=== PATIENT | male | born 1950 | race Caucasian/White ===

== ENCOUNTER 2016-08-03 09:53 | Inpatient (IN) | payer BC ==
[2016-07-09 13:56] VITALS: BMI 33.0
--- NOTE | 2016-07-09 14:32 | PAT Medication Instructions ---
Service Date Jul 09, 2016. Current Home Medication List Calcium (Caltrate), 600 MG PO HS Cholecalciferol (D-5000), 1 TAB PO HS Escitalopram (Lexapro), 10 MG PO HS Finasteride (Proscar), 5 MG PO HS Gabapentin (Neurontin), 100 MG PO HS Hydrocodone/Acetaminophen 5MG/325MG ([place] 5MG/325MG), 1 TABLET PO Q6 PRN for Pain Irbesartan-Hydrochlorothiazide (Avalide), 1 TAB PO HS Meloxicam (Mobic), 15 MG PO HS Pantoprazole (Pantoprazole Sodium), 1 TAB PO HS Psyllium (Metamucil Powder), 1 PACK PO DAILY Simvastatin (Zocor), 20 MG PO QPM Tamsulosin Hcl (Flomax *), 0.4 MG PO HS [Pottasium], 595 MG PO HS Medication Instructions For Your Scheduled Surgery Meloxicam (Mobic), 15 MG PO HS (per surgeon instructions) - Hold the following medications evening prior to surgery: Irbesartan-Hydrochlorothiazide (Avalide), 1 TAB PO HS - Hold the following medications the morning of surgery: Psyllium (Metamucil Powder), 1 PACK PO DAILY - Take the following medications the morning of surgery with a sip of water: Hydrocodone/Acetaminophen 5MG/325MG ([place] 5MG/325MG), 1 TABLET PO Q6 PRN for Pain (can take up to four hours prior to surgery if needed) - Take the following medications as scheduled the night before surgery: Potassium 595 MG PO HS Simvastatin (Zocor), 20 MG PO QPM Tamsulosin Hcl (Flomax *), 0.4 MG PO HS Pantoprazole (Pantoprazole Sodium), 1 TAB PO HS Calcium (Caltrate), 600 MG PO HS Cholecalciferol (D-5000), 1 TAB PO HS Escitalopram (Lexapro), 10 MG PO HS Finasteride (Proscar), 5 MG PO HS Gabapentin (Neurontin), 100 MG PO HS Hydrocodone/Acetaminophen 5MG/325MG ([place] 5MG/325MG), 1 TABLET PO Q6 PRN for Pain If you have any questions please call us at [phone] or [phone] ( Graciela) or [phone]
[2016-07-09 15:19] LABS: BASO % 0.1 %; BASO ABS # 0.01 K/uL (0-0.2); COMPLETE YES; EOS % 1.9 %; IG% 0.3 %; MEAN CELL VOLUME 88.6 fL (80-100); MEAN CORPUSCULAR HEMOGLOBIN 31.4 pg (25-34); MEAN CORPUSCULAR HGB CONC 35.5 g/dl (32-36); MEAN PLATELET VOLUME 9.3 fL (7.4-10.4); MONO % 6.7 %; PLATELET COUNT 219 K/uL (130-400); RED BLOOD COUNT 4.74 M/uL (4.7-6.1); WHITE BLOOD COUNT 8.63 K/uL (4.8-10.8)
--- NOTE | 2016-07-09 15:21 | DIAGNOSTIC IMAGING REPORT ---
TWO VIEW CHEST CLINICAL HISTORY: Preoperative examination. FINDINGS: PA and lateral chest radiographs are compared to study dated 10/10/2013. The heart is top normal for projection. Chronic interstitial thickening with elevation of the right hemidiaphragm is similar to previous. No airspace consolidation or pleural effusion is seen. There is a questionable 1.4 cm nodular density in the left upper lobe. There is no pneumothorax. The skeletal structures appear osteopenic. Degenerative change is noted throughout the thoracic spine. Cholecystectomy clips are identified in the right upper quadrant. IMPRESSION: 1. No active disease in the chest. 2. There is a questionable 1.4 cm nodular density in the left upper lobe. Although this could represent superimposition of shadows, a follow-up chest CT is recommended to exclude underlying pulmonary lesion. Electronically signed by: Lele Dominguez M.D. 07/09/2016 3:20 PM Dictated Date/Time: 07/09/2016 3:17 PM
[2016-07-09 15:23] LABS: URINE APPEARANCE CLEAR (CLEAR); URINE BILIRUBIN NEG (NEG); URINE COLOR YELLOW; URINE NITRITE NEG (NEG); URINE PH 7.5 (4.5-7.5); URINE SPECIFIC GRAVITY 1.011 (1.000-1.030); UROBILINOGEN NEG (NEG); ZZUR CULT IF INDIC CLEAN CATCH NO
[2016-07-09 15:36] LABS: MANUAL MICROSCOPIC REQUIRED? NO; REVIEW REQ? NO
[2016-07-09 15:41] LABS: PROTHROMBIN TIME (PATIENT) 10.7 SECONDS (9.0-12.0)
[2016-07-09 15:52] LABS: BUN/CREATININE RATIO 15.2 (10-20); CALCIUM 9.3 mg/dl (8.5-10.1); CREATININE 1.1 mg/dl (0.60-1.40); POTASSIUM 3.9 mmol/L (3.5-5.1)
--- NOTE | 2016-07-31 14:31 | HISTORY & PHYSICAL EXAMINATION ---
DATE OF ADMISSION: 08/03/2016 CHIEF COMPLAINT: Right hip pain. HISTORY OF PRESENT ILLNESS: The patient rates his pain a 9/10. He has pain with his daily activities. He has limited standing and walking tolerance. Pain is worse with weightbearing. The patient has had injections, anti-inflammatories and narcotics without relief. The patient has failed conservative treatment and is scheduled for right hip replacement. PAST MEDICAL HISTORY: Hypertension, acid reflux. He denies heart disease, diabetes or DVT. PAST SURGICAL HISTORY: Lumbar fusion, left BHR and left toe ORIF. SOCIAL HISTORY: The patient denies alcohol or tobacco use. He lives in a single amarilys home with his and he works as a endo tech. FAMILY HISTORY: Negative for DVT. MEDICATIONS: Hydrocodone 5/325, escitalopram 10 mg, Meloxicam 15 mg, pantoprazole 40 mg, finasteride 5 mg, simvastatin 20 mg, irbesartan 150/12.5 and gabapentin 100 mg. ALLERGIES: IV DYE. REVIEW OF SYSTEMS: See HPI. Ten other systems reviewed, all negative. PHYSICAL EXAMINATION: VITAL SIGNS: Height 5 foot 10 inches. Weight 232 pounds. BMI is 33. GENERAL: This is a well-developed, well-nourished male who is alert and oriented x3. Mood and affect are appropriate. HEENT: Normocephalic, atraumatic. Mucous membranes are moist and intact. NECK: Supple without lymphadenopathy. HEART: Regular rate and rhythm without murmurs, rubs or gallops. LUNGS: Clear to auscultation without wheezes or rhonchi. ABDOMEN: Soft and nontender. Bowel sounds are equal and active. EXTREMITIES: No ecchymosis, redness or warmth. Thigh and calf are soft and nontender. Log roll of the right hip reproduces pain in the groin. Range of motion is decreased. He is neurovascularly intact with +5/5 strength. He walks with an antalgic gait. X-RAY EXAMINATION: AP and lateral views show joint space narrowing and osteophyte formation. IMPRESSION: Degenerative joint disease, right hip. PLAN: The patient will be admitted for a right total hip arthroplasty, direct anterior. We will plan on aspirin for DVT prophylaxis. PCP is Dr. Barnes in [place]. He will have [facility] for home physical therapy.
[2016-08-03] VITALS (8 sets, daily range): BP systolic 99–147; BP diastolic 63–77; PULSE 65–71; TEMP 36.3–36.7; O2SAT 94–98; Ht 177.8 cm; Wt 103.9 kg
[~2016-08-03] VITALS: Ht 177.8 cm; Wt 103.9 kg
[~2016-08-03 09:53] MED LIST: ACETAMINOPHEN 500 MG TAB PO SCH; ATROPINE SULFATE 0.1 MG/ML 5ML SYR IV PRN; BUPIVACAINE 0.5 % 5 MG/1 ML PF 10ML VIAL ONE; CALCTAB5 PO; CEFAZOLIN 2000 MG/60 ML D5W 60 ML IV SCH; CHOLTAB11 PO; CeleBREX 200 MG CAP PO SCH; DEXAMETHASONE 4 MG TAB PO SCH; ESCI10TA17 PO; EpHEDrine SULFATE INJ 50 MG/ML AMP IV PRN; FAMOTIDINE 20 MG TAB PO SCH; FENTANYL CITRATE INJ 50 MCG/1 ML 2 ML VIAL IV PRN; FINA5TAB PO; FLM4 PO; GABA-112 PO; GABAPENTIN 300 MG CAP PO SCH; HYDR-5688 PO; IRBE-43 PO; LACTATED RINGER'S 1000ML 1,000 ML IV SCH; LACTATED RINGER'S 1000ML 500 ML IV ONE; LACTATED RINGER'S 1000ML IV SCH; MELO7.5T5 PO; METOCLOPRAMIDE HCL 10 MG TAB PO SCH; ONDANSETRON INJ 2 MG/ML 2 ML VIAL IV PRN; OXYCODONE HCL 10 MG TABCR (OXYCONTIN) PO SCH; POTTASIUM PO; PRT/40 PO; PSYL55.43 PO; ROPIVACAINE 5MG/ML 30 ML 150 MG, BUPIVACAINE/EPINEPHR 0.5% MPF 30 ML, KETOROLAC TROMETH... INFIL SCH; SIMV20TA2 PO
[2016-08-03] MEDS ORDERED: LIDOCAINE HCL 2% 2 ML VIAL (20MG/ML) ONE (11:52)
[2016-08-03] MEDS ORDERED: PROPOFOL IV EMULSION 10 MG/ML 20 ML VIAL IV ONE (11:52)
[2016-08-03] MEDS ORDERED: MIDAZOLAM HCL 1 MG/ML 2ML VIAL ONE ×2 (11:52→13:50)
--- NOTE | 2016-08-03 12:31 | History & Physical Bridge Note ---
H&P Re-Evaluation Bridge Note: I have examined the patient, reviewed the History & Physical and in the interval since the performance of the History & Physical I have noted the following changes of clinical significance: No changes noted
[2016-08-03] MEDS ORDERED: ORTHO JOINT ANESTHETIC ONE (13:11)
[2016-08-03] MEDS ORDERED: POVIDONE-IODINE OP SOLN 30 ML BTL ONE (13:11)
[2016-08-03] MEDS ORDERED: BACITRACIN 50000 UNIT VIAL ONE (13:12)
[2016-08-03] MEDS: TRANEXAMIC ACID INJ 1,000 MG in SODIUM CHLORIDE 0.9% 100ML 100 ML IV SCH ×2 (13:43→17:15)
[2016-08-03] MEDS ORDERED: ONDANSETRON INJ 2 MG/ML 2 ML VIAL ONE (14:05)
[2016-08-03] MEDS ORDERED: RANITIDINE HCL 25 MG/ML INJ ONE (14:05)
[2016-08-03] MEDS: POLYMYXIN B SULFATE 100,000 UNITS in NSS 100ML IR SCH ×2 (14:30→15:29)
[2016-08-03] MEDS: VANCOMYCIN INJ 400 MG in NSS 100ML IR SCH ×2 (14:30→15:29)
[2016-08-03] MEDS ORDERED: FENTANYL CITRATE INJ 50 MCG/1 ML 2 ML VIAL ONE (14:56)
--- NOTE | 2016-08-03 15:19 | [facility] Post Operative Brief Note ---
Immediate Operative Summary Operative Date Aug 03, 2016. Pre-Operative Diagnosis Degenerative joint disease, right hip Post-Operative Diagnosis Degenerative joint disease, right hip Procedure(s) Performed Right total hip arthroplasty, direct anterior approach--Uncemented Surgeon Dr. Vinh Ken Ground Operations Supervisor Surgeon(s) Larissa Mercedes Estimated Blood Loss 150 ml Findings DJD Specimens A: right femoral head Complication(s) None Disposition Recovery Room / PACU
[2016-08-03] MEDS ORDERED: BISACODYL 10 MG SUPP PR PRN (15:30)
[2016-08-03] MEDS ORDERED: MoRPHine SULFATE 4 MG/ML 1 ML CARP\\VIAL IV PRN (15:30)
[2016-08-03] MEDS ORDERED: MAGNESIUM HYDROXIDE SUSP 30 ML UDC PO PRN (15:30)
[2016-08-03] MEDS ORDERED: SOD PHOSPHATE/SOD BIPHOSPHATE ENEMA 132 ML BTL PR PRN (15:30)
[2016-08-03] MEDS ORDERED: DiphenhydrAMINE HCL 50 MG/ML VIAL IV PRN (15:30)
[2016-08-03] MEDS ORDERED: METOCLOPRAMIDE HCL INJ 5 MG/ML 2 ML VIAL IV PRN (15:30)
[2016-08-03] MEDS ORDERED: OXYCODONE HCL IR 5 MG TAB (IMMEDIATE RELEASE) PO PRN (15:30)
[2016-08-03] MEDS ORDERED: ALUMINUM/MAGNESIUM/SIMETH (MAALOX MAX) 30 ML UDC PO PRN (15:30)
[2016-08-03] MEDS ORDERED: ONDANSETRON INJ 2 MG/ML 2 ML VIAL IV PRN (15:30)
[2016-08-03] MEDS ORDERED: TRAMADOL HCL 50 MG TAB PO PRN (15:30)
[2016-08-03] MEDS ORDERED: ZOLPIDEM TARTRATE 5 MG TAB PO PRN (15:30)
--- NOTE | 2016-08-03 15:30 | DIAGNOSTIC IMAGING REPORT ---
RIGHT HIP UNILATERAL 1 VIEW CLINICAL HISTORY: RT HIP ARTHROPLASTY Right COMPARISON STUDY: None. FINDINGS: Total fluoroscopy time was 12 seconds. A single fluoroscopic spot image was submitted. There is a right total hip arthroplasty. The hardware appears intact. No fracture or dislocation within the right hip. IMPRESSION: Fluoroscopy provided for right total hip arthroplasty. Electronically signed by: Morgan Sun M.D. 08/03/2016 3:28 PM Dictated Date/Time: 08/03/2016 3:27 PM
--- NOTE | 2016-08-03 16:25 | Anesthesiology Progress Note ---
Anesthesia Post Op Note Date & Time Aug 03, 2016 at 16:25 Vital Signs Pain Intensity: 0 Vital Signs Past 12 Hours Date Time Temp Pulse Resp B/P Pulse Ox O2 Delivery O2 Flow Rate FiO2 08/03/16 15:45 36.3 87 14 113/66 98 Nasal Cannula 2 08/03/16 10:16 36.5 68 16 147/71 96 Room Air Notes Mental Status: alert / awake / arousable, participated in evaluation Pt Amnestic to Procedure: Yes Nausea / Vomiting: adequately controlled Pain: adequately controlled Airway Patency, RR, SpO2: stable & adequate BP & HR: stable & adequate Hydration State: stable & adequate Neuraxial Anesthesia: was administered, sensory block is resolving Anesthetic Complications: no major complications apparent
--- NOTE | 2016-08-03 16:26 | DIAGNOSTIC IMAGING REPORT ---
AP PELVIS, CROSSTABLE LATERAL RIGHT HIP History: Right total hip arthroplasty. Degenerative arthritis. Postop. FINDINGS: The patient is status post a right total hip arthroplasty. The hardware is intact. No fracture or dislocation. Surgical drains are in place. Evidence for prior left hip resurfacing. IMPRESSION: Right total hip arthroplasty. No evidence for hardware complication Electronically signed by: Morgan Sun M.D. 08/03/2016 4:25 PM Dictated Date/Time: 08/03/2016 4:24 PM
[2016-08-03] MEDS: D5W AND 1/2NSS + 20MEQ KCL 1,000 ML IV SCH (19:37)
[2016-08-03] MEDS: KETOROLAC TROMETHAMINE 30 MG/ML VIAL IV. SCH (20:10)
[2016-08-03] MEDS ORDERED: POTTASIUM PO SCH (21:00)
[2016-08-03] MEDS ORDERED: TRANEXAMIC ACID INJ 1,000 MG in SODIUM CHLORIDE 0.9% 100ML 100 ML IV SCH (21:30)
[2016-08-03] MEDS: CEFAZOLIN IV 2,000 MG in DEXTROSE 5% 50ML 50 ML IV SCH (21:44)
[2016-08-03] MEDS: ACETAMINOPHEN 500 MG TAB PO SCH (21:52)
[2016-08-03] MEDS: FINASTERIDE 5 MG TAB PO SCH (21:55)
[2016-08-03] MEDS: TAMSULOSIN HCL 0.4 MG CAP PO SCH (21:55)
[2016-08-03] MEDS: SENNA 8.6 MG TAB PO SCH (21:55)
[2016-08-03] MEDS: GABAPENTIN 100 MG CAP PO SCH (21:55)
[2016-08-03] MEDS: ASPIRIN 81 MG ECTAB PO SCH (21:55)
[2016-08-03] MEDS: SIMVASTATIN 20 MG TAB PO SCH (21:55)
[2016-08-03] MEDS: IRBESARTAN 150 MG TAB PO SCH (21:56)
[2016-08-03] MEDS: CALCIUM 600MG + VIT D 400 IU TAB PO SCH (21:56)
[2016-08-03] MEDS: ESCITALOPRAM OXALATE 10 MG TAB PO SCH (21:56)
[2016-08-03] MEDS: HYDROCHLOROTHIAZIDE 25 MG TAB PO SCH (21:57)
--- NOTE | 2016-08-03 23:56 | OPERATIVE REPORT ---
DATE OF OPERATION: 08/03/2016 PREOPERATIVE DIAGNOSIS: Degenerative arthritis, right hip. POSTOPERATIVE DIAGNOSIS: Same. PROCEDURE: Right total hip replacement. SURGEON: Vinh Ken MD. POTTERY KILN BUILDER: GURJIT Pham. ANESTHESIA: Spinal. BLOOD LOSS: 150 mL REPLACEMENT FLUIDS: 1500 mL crystalloid. DRAINS: Hemovac x1. CULTURES: None. COMPLICATIONS: None. COMPONENTS USED: Bocanegra \T\ Nephew Anthology hip system: Acetabulum size 54, femur size 9 high offset, femoral head 0, neck length 36 mm. NOTE: GURJIT Pham, was present and assisted throughout due to the complicated nature of this case. She helped with preparation and setup. She first assisted throughout and personally closed the fascial, subcutaneous and skin layers, and applied the postop dressing. DESCRIPTION: Following satisfactory spinal, the patient was supine. The patient was placed on the table, the right leg in the traction device, the left leg in a well leg garcia. The leg was prepared with ChloraPrep and draped sterilely. Following a surgical timeout, an anterior approach in the interval between the sartorius and tensor muscles was completed, circumflex femoral vessels were identified and ligated, and an anterior capsulotomy was performed. The arthritic femoral neck and head were trimmed and removed. Under fluoroscopic guidance, reaming was completed and a 54 shell was impacted into an anatomic position and secured with a dome screw. Local anesthetic was placed, and following irrigation, the poly liner was placed. The femur was placed into position of external rotation, extension and adduction. Femoral canal was sounded and prepared up to a size 9. A 9 high offset showed best fit and fill with reduction and fluoroscopy showed judaism of leg lengths using anatomic landmarks. Hip was dislocated. The trial component was removed. Final implant was placed. The hip was irrigated and reduced. Hemovac drain was placed. Betadine soak was performed. After 5 minutes, Betadine was irrigated. Capsule was closed with #1 Vicryl interrupted. The fascia was closed with a running suture of #1 Vicryl. Subcutaneous tissues were closed with 2-0 Vicryl. Running subcuticular stitch of 3-0 Vicryl was placed in the skin. A dry dressing was applied. The patient was returned to his bed in stable condition. I attest to the content of the Intraoperative Record and any orders documented therein. Any exceptio ns are noted below.
[2016-08-04] MEDS: KETOROLAC TROMETHAMINE 30 MG/ML VIAL IV. SCH ×4 (01:40→20:51)
[2016-08-04 02:50] VITALS: BP 120/72; PULSE 68; TEMP 36.5; O2SAT 96
[2016-08-04] MEDS: D5W AND 1/2NSS + 20MEQ KCL 1,000 ML IV SCH ×2 (04:28→13:20)
[2016-08-04 05:54] LABS: COMPLETE YES; IG% 0.3 %; LYMPH % 9.9 %; LYMPH ABS # 1.13 K/uL (1.2-3.4); MEAN CELL VOLUME 88.1 fL (80-100); MEAN CORPUSCULAR HEMOGLOBIN 30.6 pg (25-34); MEAN CORPUSCULAR HGB CONC 34.7 g/dl (32-36); MEAN PLATELET VOLUME 9.5 fL (7.4-10.4); MONO % 5.6 %; NEUT % 84.2 %; PLATELET COUNT 188 K/uL (130-400); RED BLOOD COUNT 3.86 M/uL (4.7-6.1); WHITE BLOOD COUNT 11.46 K/uL (4.8-10.8)
[2016-08-04] MEDS: ACETAMINOPHEN 500 MG TAB PO SCH ×3 (05:57→20:56)
[2016-08-04] MEDS: CEFAZOLIN IV 2,000 MG in DEXTROSE 5% 50ML 50 ML IV SCH (05:57)
[2016-08-04 06:27] LABS: BUN/CREATININE RATIO 15.5 (10-20); CALCIUM 8.1 mg/dl (8.5-10.1); CREATININE 1.1 mg/dl (0.60-1.40); POTASSIUM 4.2 mmol/L (3.5-5.1)
[2016-08-04 07:32] VITALS: BP 121/75; PULSE 69; TEMP 36.6; O2SAT 94
--- NOTE | 2016-08-04 07:50 | Orthopedic Progress Note ---
Orthopedic Progress Note Date of Service Aug 04, 2016. Subjective Post OP Day: 1 Reports: feeling well, Denies: SOB, calf pain, chest pain, light headedness, nausea / vomiting Objective calves soft nontender, N/V intact, hip located, dressing C/D/I, A&O x3, toes mobile, hemovac drainage (170/100CC PER SHIFT) Date Time Temp Pulse Resp B/P Pulse Ox O2 Delivery O2 Flow Rate FiO2 08/04/16 07:32 36.6 69 16 121/75 94 Room Air 08/04/16 02:50 36.5 68 18 120/72 96 Room Air 08/03/16 23:15 Room Air 08/03/16 22:55 36.4 65 16 99/63 94 Room Air 08/03/16 21:58 125/77 08/03/16 20:30 Room Air 08/03/16 19:47 36.4 65 18 109/71 94 Room Air 08/03/16 18:54 36.3 65 17 111/71 96 Nasal Cannula 2.0 08/03/16 17:43 36.7 71 17 111/73 96 Nasal Cannula 2.0 08/03/16 17:15 36.4 69 17 122/74 98 Nasal Cannula 2.0 08/03/16 16:45 97 Nasal Cannula 2.0 08/03/16 16:45 97 Nasal Cannula 2.0 08/03/16 16:45 36.5 71 18 110/68 97 Nasal Cannula 2.0 08/03/16 16:31 69 12 95 08/03/16 16:31 69 12 08/03/16 16:28 109/61 08/03/16 16:26 66 12 97 08/03/16 16:26 66 12 08/03/16 16:25 36.4 67 13 94/64 98 Nasal Cannula 2 08/03/16 16:23 94/64 08/03/16 16:21 76 16 97 08/03/16 16:21 74 16 08/03/16 16:18 109/60 08/03/16 16:16 74 18 08/03/16 16:16 72 18 104/66 08/03/16 16:13 90/67 08/03/16 16:11 78 16 08/03/16 16:11 80 16 98 08/03/16 16:08 110/73 08/03/16 16:06 82 18 96 08/03/16 16:06 81 18 08/03/16 16:03 101/67 08/03/16 16:01 72 12 97 08/03/16 16:01 72 12 08/03/16 15:58 103/66 08/03/16 15:56 86 21 08/03/16 15:56 85 21 98 08/03/16 15:53 117/69 08/03/16 15:51 77 12 97 08/03/16 15:51 79 12 08/03/16 15:48 115/65 08/03/16 15:46 90 15 08/03/16 15:46 91 15 98 08/03/16 15:45 36.3 87 14 113/66 98 Nasal Cannula 2 08/03/16 15:43 113/68 113/68 08/03/16 15:41 86 15 08/03/16 15:41 86 15 98 08/03/16 10:16 36.5 68 16 147/71 96 Room Air Laboratory Results 24 Hours: Test 08/04/16 05:25 White Blood Count 11.46 K/uL Red Blood Count 3.86 M/uL Hemoglobin 11.8 g/dL Hematocrit 34.0 % Mean Corpuscular Volume 88.1 fL Mean Corpuscular Hemoglobin 30.6 pg Mean Corpuscular Hemoglobin Concent 34.7 g/dl Platelet Count 188 K/uL Mean Platelet Volume 9.5 fL Neutrophils (%) (Auto) 84.2 % Lymphocytes (%) (Auto) 9.9 % Monocytes (%) (Auto) 5.6 % Eosinophils (%) (Auto) 0.0 % Basophils (%) (Auto) 0.0 % Neutrophils # (Auto) 9.65 K/uL Lymphocytes # (Auto) 1.13 K/uL Monocytes # (Auto) 0.64 K/uL Eosinophils # (Auto) 0.00 K/uL Basophils # (Auto) 0.00 K/uL Assessment & Plan Assessment: POD#1 SP RIGHT ARELI, DIRECT ANTERIOR Inhouse Planning Pain Management: Celebrex, PO Tylenol, Oxy IR DVT Prophylaxis: TEDs, SCDs, ASA Discharge Planning Discharge Planning: home with home health ([facility]
--- NOTE | 2016-08-04 07:51 | Discharge Instructions ---
Discharge Instructions Admission Reason for Admission: Right Hip Degenerative Arthritis Discharge Discharge Diagnosis / Problem: SP RIGHT ARELI, DIRECT ANTERIOR Discharge Goals Goal(s): Decrease discomfort, Improve function, Increase independence Activity Recommendations Activity Limitations: per Instructions/Follow-up section . Instructions / Follow-Up Instructions / Follow-Up ACTIVITY RECOMMENDATIONS: SELF CARE INSTRUCTIONS AFTER TOTAL HIP REPLACEMENT : Direct Anterior Approach Until the incision and soft tissues around your hip have healed, there is a possibility that the hip prosthesis could dislocate. A. Hip flexion ( Up & Down out of chair or steps ) may be difficult. This is normal. B. Numbness in front of the thigh is also normal for a few weeks. C. Use hand rails when walking on stairs. D. Wear low heeled shoes with non-slip soles. E. Be sure that your floors are free of things that could trip you - throw rugs , electrical cords, small objects. Avoid wet and waxed floors, especially with crutches and canes. F. Try to walk several times a day with rest periods between. G. Continue with all the exercises taught to you in the hospital. Again, make walking a part of your daily routine. SPECIAL CARE INSTRUCTIONS: VERY IMPORTANT TO READ AND REVIEW A. You may still be at risk for phlebitis and blood clots. 1. Wear surgical stockings (ELOINA hose) for 2 weeks after surgery to improve circulation and reduce swelling. 2. Take Aspirin 81mg twice daily for 4 weeks or as directed by your doctor. This is your blood thinner. 3. High risk patients may be prescribed a stronger blood thinner if necessary. 4. If you are on Coumadin normally, your family doctor/director of pharmacy should monitor your blood work. Expect a phone call the day of or the day after bloodwork is drawn to adjust your dosage. B. You must take antibiotics before having dental work, bladder, bowel and other surgery. Your doctor will provide you with a permanent card to carry describing precautions. C. Call [facility] if you have a fever, redness or swelling around the incision, cloudy drainage from incision, or sudden increase in pain in your hip, not relieved by your regular pain medication. D. Please call the office at if you have any concerns or questions about your operation or recovery. * YOU MAY SHOWER, NO TUB BATHS UNTIL CLEARED BY YOUR DOCTOR. - Keep an extra close eye on the top portion of your incision. Be sure to keep clean & dry. * WEAR ELOINA HOSE 20 HOURS PER DAY FOR 2 WEEKS. * YOU MAY PROGRESS FROM A WALKER, TO A CANE, TO INDEPENDENT AT YOUR OWN PACE. * MOST PATIENTS WILL HAVE HOME NURSING FOR THERAPY. IF YOU DECIDE TO DO OUTPATIENT PHYSICAL THERAPY, PLEASE SCHEDULE THIS 3 TIMES PER WEEK. NEW AQUACEL DRESSING. KEEP SURGICAL DRESSING INTACT X 1 WEEK THEN REMOVE. SEE BELOW FOR FURTHER INSTRUCTIONS. * DERMABOND Prineo- This is a mesh tape dressing that is covered with glue. It should remain in place until the incision is properly healed, usually 10-14 days. This dressing is designed to naturally slough off. You may trim the excess mesh tape as it peels off. Incision may be briefly wet in a shower. Dry immediately by blotting with a clean, dry towel. Do not bath or swim until instructed by your doctor. Do not scratch, rub, or pick at the dressing. Do not apply any topical ointments or lotions until dressing is completely removed and/or instructed by your doctor. There may be a small piece of suture material at one end of your incision. Do not pull or trim this. If it is bothersome or catching on clothing, you may cover it with a band-aid. FOLLOW UP VISIT: If appointment is not already scheduled: Please call [facility] to make a follow-up appointment for 2 weeks after your surgery at . Current Hospital Diet Patient's current hospital diet: Regular Diet Discharge Diet Recommended Diet: Regular Diet Procedures Procedures Performed: Right total hip arthroplasty, direct anterior approach--Uncemented Pending Studies Studies pending at discharge: no Medical Emergencies . Who to Call and When: Medical Emergencies: If at any time you feel your situation is an emergency, please call 911 immediately. . Non-Emergent Contact Non-Emergency issues call your: Primary Care Provider . "Provider Documentation" section prepared by Larissa Mercedes. VTE Core Measure Inpt VTE Proph given/why not?: Other Anticoagulation, T.E.D. Stockings, SCD's
[2016-08-04] MEDS: PANTOprazole SOD 40 MG TAB PO SCH (08:46)
[2016-08-04] MEDS: ASPIRIN 81 MG ECTAB PO SCH ×2 (08:46→20:53)
[2016-08-04] MEDS: MULTIVITAMIN TAB PO SCH (08:47)
[2016-08-04] MEDS: PSYLLIUM 58.6% PWD PACK S\\F PO SCH (08:47)
[2016-08-04 10:38] VITALS: BP 114/61; PULSE 74; TEMP 36.5; O2SAT 94
[2016-08-04 15:10] VITALS: BP 144/76; PULSE 72; TEMP 36.4; O2SAT 99
[2016-08-04] MEDS: HYDROCHLOROTHIAZIDE 25 MG TAB PO SCH (20:52)
[2016-08-04] MEDS: IRBESARTAN 150 MG TAB PO SCH (20:52)
[2016-08-04] MEDS: TAMSULOSIN HCL 0.4 MG CAP PO SCH (20:53)
[2016-08-04] MEDS: CALCIUM 600MG + VIT D 400 IU TAB PO SCH (20:54)
[2016-08-04] MEDS: GABAPENTIN 100 MG CAP PO SCH (20:54)
[2016-08-04] MEDS: ESCITALOPRAM OXALATE 10 MG TAB PO SCH (20:54)
[2016-08-04] MEDS: SENNA 8.6 MG TAB PO SCH (20:55)
[2016-08-04] MEDS: FINASTERIDE 5 MG TAB PO SCH (20:55)
[2016-08-04] MEDS: SIMVASTATIN 20 MG TAB PO SCH (20:55)
[2016-08-04 23:17] VITALS: BP 109/70; PULSE 73; TEMP 36.7; O2SAT 98
[2016-08-05] MEDS: KETOROLAC TROMETHAMINE 30 MG/ML VIAL IV. SCH ×2 (01:36→08:29)
[2016-08-05 06:11] VITALS: BP 116/68; PULSE 75; TEMP 36.7; O2SAT 97
[2016-08-05] MEDS: ACETAMINOPHEN 500 MG TAB PO SCH (06:12)
[2016-08-05] MEDS ORDERED: ACET-1138 PO (07:44)
[2016-08-05] MEDS ORDERED: ASPEC81 PO (07:44)
[2016-08-05] MEDS ORDERED: SNK PO (07:44)
[2016-08-05] MEDS ORDERED: CLB200 PO (07:44)
[2016-08-05] MEDS ORDERED: ONDA8TAB6 PO (07:44)
[2016-08-05] MEDS ORDERED: RXC5 PO (07:44)
[2016-08-05 07:53] VITALS: BP 128/76; PULSE 69; TEMP 36.8; O2SAT 93
[2016-08-05] MEDS: PSYLLIUM 58.6% PWD PACK S\\F PO SCH (08:27)
[2016-08-05] MEDS: MULTIVITAMIN TAB PO SCH (08:30)
[2016-08-05] MEDS: ASPIRIN 81 MG ECTAB PO SCH (08:30)
[2016-08-05] MEDS: PANTOprazole SOD 40 MG TAB PO SCH (08:30)
[2016-08-05 08:55] VITALS: O2SAT 93
--- NOTE | 2016-08-05 09:20 | DISCHARGE SUMMARY ---
DISCHARGE DIAGNOSIS: Degenerative joint disease, right hip. SECONDARY DIAGNOSIS: None. CONSULTS: None. COMPLICATIONS: None. PROCEDURE: The patient underwent a direct anterior right total hip arthroplasty with Dr. Ken on 08/03/2016. BRIEF HISTORY: Please see previously dictated history and physical. HOSPITAL SUMMARY: The patient was admitted on the above day for the above procedure. Procedure went without complication. Postop day 1, the patient was feeling well without complaints. He denied chest pain or shortness of breath. Vital signs were stable. He was afebrile. Dressing was clean, dry and intact. He was neurovascularly intact. Calves were soft and nontender. Hip was located. Hemovac drained 170 and 100 mL per shift. Hemoglobin was 11.8. The patient began physical therapy per protocol and postop day 2 the patient was improving. He denied chest pain or shortness of breath. Vital signs were stable. He was afebrile. Dressing was clean, dry and intact. He was neurovascularly intact. Calves were soft and nontender. Hemovac has been removed. The patient continued to progress with therapy and was discharged to home later that day in stable condition. For further review please see the chart. Lab, x-ray data and discharge instructions as per chart.
[2016-08-05 10:37] VITALS: BP 128/76; PULSE 69; TEMP 36.8; O2SAT 93
[2016-08-06] MEDS ORDERED: CeleBREX 200 MG CAP PO SCH (09:00)
== END 2016-08-05 11:45 | disposition home health service (06) | DRG 470 ==
LOC: ENRESERVTM → ENRESERVDT → C.ACU 09:53 → C.3E 11:00
PROVIDERS: ADMIT Orthopaedic Surgery; ATTEND Orthopaedic Surgery
PROC: 0SR904A Replacement of Right Hip Joint with Ceramic on Polyethylene Synthetic Substitute, Uncemented, Open Approach (ICD-10-PCS; principal; 2016-08-03 12:30)
DX: M16.11 Unilateral primary osteoarthritis, right hip (principal); I10 Essential (primary) hypertension; K21.9 Gastro-esophageal reflux disease without esophagitis; E78.5 Hyperlipidemia, unspecified; F41.9 Anxiety disorder, unspecified; F32.9 Major depressive disorder, single episode, unspecified; N40.0 Benign prostatic hyperplasia without lower urinary tract symptoms; E66.9 Obesity, unspecified; Z68.33 Body mass index [BMI] 33.0-33.9, adult; Z87.891 Personal history of nicotine dependence; Z98.1 Arthrodesis status; Z79.1 Long term (current) use of non-steroidal anti-inflammatories (NSAID); Z79.891 Long term (current) use of opiate analgesic; Z79.899 Other long term (current) drug therapy

== ENCOUNTER 2017-05-19 07:05 | Inpatient (IN) | payer BC, OTHER ==
--- NOTE | 2017-04-29 13:55 | PAT Medication Instructions ---
Service Date Apr 29, 2017. Current Home Medication List Acetaminophen (Tylenol Extra Strength), 1,000 MG PO Q8 Calcium (Calcium), 1 TAB PO QAM Cholecalciferol (D-1000), 1 TAB PO HS Escitalopram (Lexapro), 10 MG PO HS Finasteride (Proscar), 5 MG PO HS Irbesartan-Hydrochlorothiazide (Avalide), 1 TAB PO QPM Meloxicam (Mobic), 15 MG PO QAM Oxycodone HCl (Oxycodone HCl), 5-10 MG PO Q4H PRN for Pain Pantoprazole (Pantoprazole Sodium), 1 TAB PO HS Psyllium (Metamucil), 1 DOSE PO DAILY PRN for Constipation Simvastatin (Zocor), 20 MG PO QPM [potassium], 595 MG PO QAM Medication Instructions For Your Scheduled Surgery - Check with surgeon for instructions: Meloxicam (Mobic), 15 MG PO QAM - Hold the following medications 24 hours prior to surgery: Irbesartan-Hydrochlorothiazide (Avalide), 1 TAB PO QPM - Hold the following medications the morning of surgery: Calcium (Calcium), 1 TAB PO QAM [potassium], 595 MG PO QAM Psyllium (Metamucil), 1 DOSE PO DAILY PRN for Constipation - Take the following medications the morning of surgery with a sip of water: Acetaminophen (Tylenol Extra Strength), 1,000 MG PO Q8 (okay to take up to 4 hours prior to surgery if needed) Oxycodone HCl (Oxycodone HCl), 5-10 MG PO Q4H PRN for Pain (okay to take up to 4 hours prior to surgery if needed) - Take the following medications as scheduled the night before surgery: Cholecalciferol (D-1000), 1 TAB PO HS Escitalopram (Lexapro), 10 MG PO HS Finasteride (Proscar), 5 MG PO HS Simvastatin (Zocor), 20 MG PO QPM Pantoprazole (Pantoprazole Sodium), 1 TAB PO HS Psyllium (Metamucil), 1 DOSE PO DAILY PRN for Constipation (if needed) If you have any questions please call us at [phone] or [phone] or [phone]
[2017-04-29 14:58] LABS: BASO % 0.3 %; BASO ABS # 0.02 K/uL (0-0.2); COMPLETE YES; EOS % 2.7 %; HEMATOCRIT 40.2 % (42-52); IG% 0.2 %; LYMPH % 39.8 %; LYMPH ABS # 2.62 K/uL (1.2-3.4); MEAN CELL VOLUME 89.7 fL (80-100); MEAN CORPUSCULAR HEMOGLOBIN 30.8 pg (25-34); MEAN CORPUSCULAR HGB CONC 34.3 g/dl (32-36); MEAN PLATELET VOLUME 9.3 fL (7.4-10.4); MONO % 7.6 %; NEUT % 49.4 %; PLATELET COUNT 212 K/uL (130-400); RED BLOOD COUNT 4.48 M/uL (4.7-6.1); WHITE BLOOD COUNT 6.59 K/uL (4.8-10.8)
[2017-04-29 14:59] LABS: URINE APPEARANCE CLEAR (CLEAR); URINE BILIRUBIN NEG (NEG); URINE COLOR YELLOW; URINE NITRITE NEG (NEG); URINE PH 6.5 (4.5-7.5); URINE SPECIFIC GRAVITY 1.016 (1.000-1.030); UROBILINOGEN NEG (NEG); ZZUR CULT IF INDIC CLEAN CATCH NO
[2017-04-29 15:01] LABS: MANUAL MICROSCOPIC REQUIRED? NO; REVIEW REQ? NO
[2017-04-29 15:04] LABS: BUN/CREATININE RATIO 18.9 (10-20); CALCIUM 9.3 mg/dl (8.5-10.1); CREATININE 1.12 mg/dl (0.60-1.40); POTASSIUM 4.4 mmol/L (3.5-5.1)
[2017-05-19] VITALS (9 sets, daily range): BP systolic 102–152; BP diastolic 66–80; PULSE 60–89; TEMP 36.4–36.9; O2SAT 94–100; Ht 177.8 cm; Wt 91.7 kg
[~2017-05-19] VITALS: Ht 177.8 cm; Wt 91.7 kg
[~2017-05-19 07:05] MED LIST changes: +ACET-1138 PO; -ACETAMINOPHEN 500 MG TAB PO SCH; -ATROPINE SULFATE 0.1 MG/ML 5ML SYR IV PRN; -BUPIVACAINE 0.5 % 5 MG/1 ML PF 10ML VIAL ONE; +CALC600T37 PO; -CALCTAB5 PO; -CEFAZOLIN 2000 MG/60 ML D5W 60 ML IV SCH; +CEFAZOLIN 2000MG IV PUSH 10 ML IV SCH; -CHOLTAB11 PO; +CHOLTAB5 PO; -CeleBREX 200 MG CAP PO SCH; -DEXAMETHASONE 4 MG TAB PO SCH; -EpHEDrine SULFATE INJ 50 MG/ML AMP IV PRN; -FAMOTIDINE 20 MG TAB PO SCH; -FENTANYL CITRATE INJ 50 MCG/1 ML 2 ML VIAL IV PRN; -FLM4 PO; -GABA-112 PO; -GABAPENTIN 300 MG CAP PO SCH; -HYDR-5688 PO; +IRBE-41 PO; -IRBE-43 PO; -LACTATED RINGER'S 1000ML 500 ML IV ONE; -LACTATED RINGER'S 1000ML IV SCH; -METOCLOPRAMIDE HCL 10 MG TAB PO SCH; -ONDANSETRON INJ 2 MG/ML 2 ML VIAL IV PRN; -OXYCODONE HCL 10 MG TABCR (OXYCONTIN) PO SCH; +PANT40TA2 PO; -POTTASIUM PO; -PRT/40 PO; +PSYL0.524 PO; -PSYL55.43 PO; -ROPIVACAINE 5MG/ML 30 ML 150 MG, BUPIVACAINE/EPINEPHR 0.5% MPF 30 ML, KETOROLAC TROMETH... INFIL SCH; +RXC5 PO; +potassium PO
[2017-05-19] MEDS ORDERED: ATROPINE SULFATE 0.1 MG/ML 5ML SYR IV PRN (07:45)
[2017-05-19] MEDS ORDERED: EpHEDrine SULFATE INJ 50 MG/ML AMP IV PRN (07:45)
[2017-05-19] MEDS ORDERED: FENTANYL CITRATE INJ 50 MCG/1 ML 2 ML VIAL IV PRN (07:45)
[2017-05-19] MEDS ORDERED: ONDANSETRON INJ 2 MG/ML 2 ML VIAL IV PRN ×2 (07:45→11:30)
[2017-05-19] MEDS ORDERED: HYDROmorphone INJ 1 MG/ML SYR IV PRN (07:45)
[2017-05-19] MEDS ORDERED: FENTANYL CITRATE INJ 50 MCG/1 ML 2 ML VIAL ONE ×3 (08:18→10:36)
[2017-05-19] MEDS ORDERED: MIDAZOLAM HCL 1 MG/ML 2ML VIAL ONE (08:18)
--- NOTE | 2017-05-19 08:36 | History and Physical ---
History & Physical Date May 19, 2017. Chief Complaint Back and leg pain History of Present Illness The patient is a 66 year old male with complaints of back and leg pain Past Medical/Surgical History Surgical Problems: (1) Post-operative state Additional History Hepatic Disease: No Endocrine Disorder: No Kidney Disease: No Hypertension: Yes Heart Disease: No Bleeding Tendencies: No Infectious Diseases: No Allergies Coded Allergies: Iodinated Diagnostic Agents (Verified Allergy, Intermediate, HIVES, ) Home Medications Scheduled Acetaminophen (Tylenol Extra Strength), 1,000 MG PO Q8 Calcium (Calcium), 1 TAB PO QAM Cholecalciferol (D-1000), 1 TAB PO HS Escitalopram (Lexapro), 10 MG PO HS Finasteride (Proscar), 5 MG PO HS Irbesartan-Hydrochlorothiazide (Avalide), 1 TAB PO QPM Meloxicam (Mobic), 15 MG PO QAM Pantoprazole (Pantoprazole Sodium), 1 TAB PO HS Simvastatin (Zocor), 20 MG PO QPM [potassium], 595 MG PO QAM Scheduled PRN Oxycodone HCl (Oxycodone HCl), 5-10 MG PO Q4H PRN for Pain Psyllium (Metamucil), 1 DOSE PO DAILY PRN for Constipation Physical Examination Skin: warm/dry, no rash Eyes: normal inspection, EOMI, sclerae normal ENT: normal ENT inspection, pharynx normal Head: normocephalic, atraumatic Neck: supple, no adenopathy, trachea midline Respiratory/Chest: lungs clear, normal breath sounds, no respiratory distress Cardiovascular: regular rate, rhythm, no edema, no murmur Abdomen / GI: normal bowel sounds, non tender Back: normal inspection Extremities: normal inspection, normal range of motion Neurologic/Psych: no motor/sensory deficits, alert, normal reflexes, oriented x 3 Diagnosis Lumbar spinal stenosis Plan of Treatment Removal of hardware L4 5 decompression fusion L2 to L4
[2017-05-19] MEDS ORDERED: BACITRACIN 50000 UNIT VIAL ONE (08:54)
[2017-05-19] MEDS ORDERED: BUPIVACAINE/EPINEPHRINE 0.5% MPF 1:200,000 30 ML VIAL ONE (08:54)
[2017-05-19] MEDS ORDERED: HYDROmorphone INJ 2 MG/ML SYR/VIAL ONE ×2 (09:33→11:25)
[2017-05-19] MEDS ORDERED: ONDANSETRON INJ 2 MG/ML 2 ML VIAL ONE ×2 (10:26→11:29)
[2017-05-19] MEDS ORDERED: DEXAMETHASONE SOD INJ 4 MG/ML VIAL ONE (10:26)
[2017-05-19] MEDS ORDERED: LIDOCAINE HCL 2% 2 ML VIAL (20MG/ML) ONE (10:26)
[2017-05-19] MEDS ORDERED: PROPOFOL IV EMULSION 10 MG/ML 20 ML VIAL IV ONE (10:26)
[2017-05-19] MEDS ORDERED: FLOSEAL HEMOSTATIC MATRIX 5ML TOP ONE (11:12)
[2017-05-19] MEDS ORDERED: SODIUM CHLORIDE 0.9% 1000ML 1,000 ML IV SCH (11:17)
[2017-05-19] MEDS ORDERED: GLYCOPYRROLATE INJ 0.2 MG/ML VIAL ONE (11:29)
[2017-05-19] MEDS ORDERED: NEOSTIGMINE METHYLSULFATE 1 MG/ML 10ML VIAL ONE (11:29)
[2017-05-19] MEDS ORDERED: DO NOT ADMINISTER PNEUMOCOCCAL VACCINE PRN ×2 (11:30)
[2017-05-19] MEDS ORDERED: BISACODYL 10 MG SUPP PR PRN (11:30)
[2017-05-19] MEDS ORDERED: PROMETHAZINE HCL INJ 12.5 MG in SODIUM CHLORIDE 0.9% 50ML 50 ML IV PRN (11:30)
[2017-05-19] MEDS ORDERED: ALUMINUM/MAGNESIUM SUSP 30 ML UDC PO PRN (11:30)
[2017-05-19] MEDS ORDERED: SOD PHOSPHATE/SOD BIPHOSPHATE ENEMA 132 ML BTL PR PRN (11:30)
[2017-05-19] MEDS ORDERED: HYDROmorphone HCL 0.5MG/ML 50 ML CASSETTE IV PRN (11:30)
[2017-05-19] MEDS ORDERED: MAGNESIUM HYDROXIDE SUSP 30 ML UDC PO PRN (11:30)
[2017-05-19] MEDS ORDERED: hydrOXYzine HCL 25 MG TAB PO PRN (11:30)
[2017-05-19] MEDS ORDERED: DO NOT ADMINISTER FLU VACCINE PRN ×3 (11:30)
[2017-05-19] MEDS ORDERED: FAMOTIDINE 20 MG TAB PO PRN (11:30)
[2017-05-19] MEDS ORDERED: ACETAMINOPHEN IV 100 ML IV PRN (11:30)
[2017-05-19] MEDS ORDERED: NALOXONE HCL 0.4 MG/1 ML VIAL/CARP IV PRN ×2 (11:30)
[2017-05-19] MEDS ORDERED: LORAZEPAM INJ 0.5 MG in SYRINGE 0 ML IV PRN (11:30)
[2017-05-19] MEDS ORDERED: LORAZEPAM 0.5 MG TAB PO PRN (11:30)
[2017-05-19] MEDS ORDERED: METOCLOPRAMIDE HCL INJ 5 MG/ML 2 ML VIAL IV PRN (11:30)
[2017-05-19] MEDS ORDERED: ACETAMINOPHEN 500 MG TAB PO PRN (11:30)
--- NOTE | 2017-05-19 11:35 | DIAGNOSTIC IMAGING REPORT ---
LUMBAR SPINE 2 OR 3 VIEW CLINICAL HISTORY: 66 years-old Male presenting with L4-5 REMOVE HARDWARE L2-4 DECOMPRESSION/FUSION/INTERBODY. TECHNIQUE: 3 fluoroscopic spot image(s) obtained as part of an intraoperative procedure. COMPARISON: MR lumbar spine from 03/22/2017. FINDINGS/IMPRESSION: There has been interval extension of posterior lumbar fusion now spanning L2-L4 with removal of the L5 posterior bilateral transpedicular screw and lalit fixation. Interbody spacers noted from L2-3 through L4-5. Laminectomy defects at these levels also noted. Grossly normal anatomic alignment. Please see surgical report for further details. Fluoroscopy dosage (mGy): 7.07. Fluoroscopy time: 8.6 seconds. Number of fluoroscopic spot images: 3. Electronically signed by: César Telles M.D. 05/19/2017 11:34 AM Dictated Date/Time: 05/19/2017 11:32 AM
--- NOTE | 2017-05-19 11:42 | [facility] Operative Report ---
Operative Report Operative Date May 19, 2017. Pre-Operative Diagnosis Lumbar Spinal Stenosis Post-Operative Diagnosis Lumbar Spinal Stenosis Procedure(s) Performed #1 removal of posterior instrumentation L4 5. #2 exploration of fusion L4 5. #3 revision decompression medial facetectomies foraminotomies L2 3 and L3 4. #4 posterior spinal fusion L2 3 L3 4. #5 posterior segmental transportation L2 3 L3 4. #6 interbody fusion L2 3 L3 4. #7 placement peek cage 12 x 26 mm L 2 3 L3 4. #8 placement of locally harvested morcellized autograft in the posterior lateral gutters. #9 placement infuse collagen sponge combined with Master graft in the posterior lateral gutters and ostial amp in the interbody spaces. Surgeon Dr. Ching Band Singer Surgeon(s) GURJIT Arredondo Estimated Blood Loss 250mL Findings Severe spinal stenosis with herniated was pulposus Specimens A) Removed Hardware Description of Procedure Patient was met with preoperatively case discussed all questions addressed. After informed consent was obtained patient was taken back to the operative suite underwent intubation placed in a prone position the Jose table top Lior frame. All bony prominences were well-padded eyes inspected to ensure there is no external pressure placed upon them. This point the lumbar spines prepped and draped nostril fashion. Sharp dissection with the assistance of Bovie cautery was performed onto an exposing the lamina and transverse processes of L2-L3 and instrumentation at the L4 5 bilaterally. Then proceeded remove the hardware at L4 5 bilaterally. Explored the fusion mass noting it to be intact. Then performed a complete revision laminectomy of L3 and L2 addressing severe lateral recess and foraminal disease. Including a massive disc herniation at L2-3 level. Pedicle screws then placed in L2 L3 L4 bilaterally with assistance of fluoroscopy and the probably size lalit placed. Through a transforaminal approach on the right a complete discectomy of L34 was performed and plate created to subcortical bleeding bone and a 12 x 26 mm peek cage filled with ostial amp graft tapped in position. Then proceeded to 3 and again through a transverse foraminal approach on the right a complete discectomy performed end plate curetted to subcortical bleeding bone and again a 12 x 26 mm peek cage filled with ostial amp bone graft tapped in position. The rods were then compressed locked into final position bilaterally. The transverse processes of L2 L3 L4 burred to subcortical bleeding bone. Infuse collagen sponge mask graft locally harvested morcellized autograft was placed in the posterior gutters. 15 round TOM drain was inserted. Incision was then closed with 1 Vicryl fascia 2-0 Vicryl subcutaneous C 4 Monocryl for final skin closure Steri-Strip sterile dressing was placed patient we can take PACU stable condition. Please note Nette Grant was present at the entire procedure involved in patient positioning complex portions of the surgery and final skin closure. I attest to the content of the Intraoperative Record and any orders documented therein. Any exceptions are noted below.
[2017-05-19] MEDS ORDERED: EpHEDrine SULFATE 50MG/5ML SYR ONE (11:46)
[2017-05-19] MEDS ORDERED: KETOROLAC TROMETHAMINE 30 MG/ML VIAL ONE (11:46)
[2017-05-19] MEDS ORDERED: ESMOLOL HCL 10 MG/ML 10 ML VIAL ONE (11:46)
[2017-05-19] MEDS ORDERED: ROCURONIUM BROMIDE 10 MG/ML 5 ML VIAL IV ONE (11:47)
[2017-05-19] MEDS ORDERED: HYDROmorphone HCL 0.5MG/ML 50 ML CASSETTE ONE (11:47)
--- NOTE | 2017-05-19 12:16 | Anesthesiology Progress Note ---
Anesthesia Post Op Note Date & Time May 19, 2017 at 12:16 Vital Signs Pain Intensity: 2 Vital Signs Past 12 Hours Date Time Temp Pulse Resp B/P (MAP) Pulse Ox O2 Delivery O2 Flow Rate FiO2 05/19/17 12:10 36.6 76 16 123/69 99 Nasal Cannula 4 05/19/17 12:00 79 16 130/65 100 Oxymask 10 05/19/17 11:50 81 16 140/70 100 Oxymask 10 05/19/17 11:41 36.9 85 16 127/68 100 Oxymask 10 05/19/17 08:21 36.9 60 20 152/80 96 Room Air Notes Mental Status: alert / awake / arousable, participated in evaluation Pt Amnestic to Procedure: Yes Nausea / Vomiting: adequately controlled Pain: adequately controlled Airway Patency, RR, SpO2: stable & adequate BP & HR: stable & adequate Hydration State: stable & adequate Anesthetic Complications: no major complications apparent
[2017-05-19] MEDS: LACTATED RINGER'S 1000ML 1,000 ML IV SCH ×2 (15:56→21:12)
[2017-05-19] MEDS ORDERED: NURSING VERBAL MED ORDER ONE (19:30)
[2017-05-19] MEDS: DOCUSATE SODIUM/SENNA 50/8.6MG TAB PO SCH (21:12)
[2017-05-19] MEDS: ESCITALOPRAM OXALATE 10 MG TAB PO SCH (21:12)
[2017-05-19] MEDS: PANTOprazole SOD 40 MG TAB PO SCH (21:12)
[2017-05-19] MEDS: DEXAMETHASONE INJ 6 MG in SYRINGE 0 ML IV SCH (21:12)
[2017-05-19] MEDS: SIMVASTATIN 20 MG TAB PO SCH (21:12)
[2017-05-19] MEDS: FINASTERIDE 5 MG TAB PO SCH (21:13)
[2017-05-19] MEDS: IRBESARTAN 150 MG TAB PO SCH (21:13)
[2017-05-19] MEDS: HYDROCHLOROTHIAZIDE 25 MG TAB PO SCH (21:13)
[2017-05-19] MEDS: CEFAZOLIN IV 2,000 MG in SYRINGE 0 ML IV SCH (21:21)
[2017-05-20] VITALS (7 sets, daily range): BP systolic 108–136; BP diastolic 62–71; PULSE 67–80; TEMP 36.5–37.1; O2SAT 95–98
[2017-05-20] MEDS: DEXAMETHASONE INJ 6 MG in SYRINGE 0 ML IV SCH ×2 (03:30→11:22)
[2017-05-20] MEDS: LACTATED RINGER'S 1000ML 1,000 ML IV SCH (03:30)
[2017-05-20] MEDS: CEFAZOLIN IV 2,000 MG in SYRINGE 0 ML IV SCH (03:30)
[2017-05-20] MEDS ORDERED: DC PCA ONE (06:00)
[2017-05-20] MEDS ORDERED: NURSING VERBAL MED ORDER ONE (06:00)
[2017-05-20] MEDS ORDERED: HYDROmorphone INJ 0.5 MG/0.5 ML SYR IV PRN (06:01)
[2017-05-20 07:39] LABS: COMPLETE YES; HEMATOCRIT 33.7 % (42-52); IG% 0.3 %; LYMPH % 7.3 %; LYMPH ABS # 0.77 K/uL (1.2-3.4); MEAN CELL VOLUME 89.6 fL (80-100); MEAN CORPUSCULAR HEMOGLOBIN 31.1 pg (25-34); MEAN CORPUSCULAR HGB CONC 34.7 g/dl (32-36); MEAN PLATELET VOLUME 9.3 fL (7.4-10.4); MONO % 5.9 %; NEUT % 86.5 %; PLATELET COUNT 200 K/uL (130-400); RED BLOOD COUNT 3.76 M/uL (4.7-6.1); WHITE BLOOD COUNT 10.53 K/uL (4.8-10.8)
[2017-05-20] MEDS ORDERED: RXC5 PO (07:44)
--- NOTE | 2017-05-20 07:45 | Discharge Instructions ---
Discharge Instructions Date of Service May 20, 2017. Admission Reason for Admission: Lumbar Spinal Stenosis Discharge Discharge Diagnosis / Problem: lumbar spinal stenosis Discharge Goals Goal(s): Improve function Activity Recommendations Activity Limitations: per Instructions/Follow-up section . Instructions / Follow-Up Instructions / Follow-Up ACTIVITY RECOMMENDATIONS: SELF CARE INSTRUCTIONS AFTER THORACIC/LUMBAR FUSIONS 1. You may walk to your tolerance. It is good exercise for your legs and back. Expect some back and intermittent leg aches and pains. 2. You may perform "counter-top" level activities (make a sandwich, hattie with a project, etc.). 3. No bending or lifting of more than 10 pounds or back twisting of any nature (roll like a log when turning in bed). 4. You may ride in a car for 20-30 minutes at a time. No driving until after your first visit with your doctor. 5. Frequent changes of position and restricting sitting to 30 minutes at a time will help limit the amount of back spasms and stiffness you may experience. 6. You may discontinue the use of ambulatory aids (cane, crutches, etc.) once your strength and confidence allow. 7. You may filer finish the shower and let water strike your incision when you arrive home at least once daily. Do not take a tub bath, sit in a hot tub or go into a swimming pool until after your first recheck in the office. SPECIAL CARE INSTRUCTIONS: VERY IMPORTANT TO READ AND REVIEW A. Your surgical incision has been closed with a cosmetic suture under the skin that will dissolve in about 6 weeks. In 14 days, you can use a pair of clean scissors and cut the suture that is left outside of the skin at the ends of your incision. 1. The small skin tapes can be removed 7 days after surgery if they have not fallen off by that point. 2. You may keep the wound open to air as much as possible to promote healing after post-op day number 5 unless told otherwise by your doctor. 3. If you think the wound looks like it is becoming infected (redness or worsening drainage) and/or you are experiencing fever, chill or worsening back pain and muscle spasms, contact the office so that we may evaluate you as soon as possible. B. Complications are uncommon, but please contact us if you have any signs or symptoms of: 1. wound infection (fever higher than 102.5 degrees F, redness, separation of wound, drainage, or increasing pain from the incision) 2. blood clots in legs (pain, swelling, redness and warmth in legs) 3. urinary tract infection (fever higher than 102.5 degrees F, burning upon urination or increased frequency of urination) 4. nerve problems (inability to walk on your toes or heels, numbness, loss of bowel or bladder control) 5. any other symptoms that concern you C. Please call the office at if you have any concerns or questions about your operation or recovery. D. No smoking! Smoking drastically decreases the chance of a solid fusion. E. Do not take any anti-inflammatory medications (Indocin, Advil, Motrin, Aspirin, Naprosyn, etc.) as these may inhibit the chance of a solid fusion. Tylenol is okay to take for pain. MANAGING PAIN AFTER SPINAL SURGERY 1. Narcotic medication is intended for short-term use and will be provided for surgical pain. Surgical pain usually lasts for a period of 4-6 weeks. Narcotic medication includes Percocet, Vicodin, Darvocet, Tylenol #3 or Lortab. 2. Longer-term pain is more appropriately treated with non-narcotic medication such as Tylenol ES. 3. Muscle spasm is not appropriately treated with narcotics. Muscle relaxers such as Soma, Flexeril or Skelaxin can be used along with Tylenol ES. 4. Remember that we all live with some "aches and pains". This is not unusual or uncommon after an injury or as we get older. a. Back pain is expected and may include muscle spasms for 4 to 6 weeks after surgery. The pain should gradually improve. If the pain worsens for no apparent reason, please contact the office. b. Intermittent leg pain may also be experienced and should not be concerned about unless it worsens for no apparent reason. If so, please contact the office. 5. We will provide appropriate medication within the normal guidelines of their prescribed use. We will also be very cautious and aware of potential abuse and extended duration of patients' medication needs. a. Pain medications are for your comfort and to assist with sleep and rest so that the tissue can heal. They are not provided in order to return to normal activity and should not be used through the day. To do so or worsening pain at night can result from ongoing tissue damage and development of tolerance to the prescribed medicine. 6. Please allow 2-3 days to process refills. Prescriptions will not be mailed but must be picked up at the office. FOLLOW UP VISIT: Keep your scheduled follow-up appointment. Any questions, please call the office at . Current Hospital Diet Patient's current hospital diet: Regular Diet Discharge Diet Recommended Diet: Regular Diet Procedures Procedures Performed: #1 removal of posterior instrumentation L4 5. #2 exploration of fusion L4 5. #3 revision decompression medial facetectomies foraminotomies L2 3 and L3 4. #4 posterior spinal fusion L2 3 L3 4. #5 posterior segmental transportation L2 3 L3 4. #6 interbody fusion L2 3 L3 4. #7 placement peek cage 12 x 26 mm L 2 3 L3 4. #8 placement of locally harvested morcellized autograft in the posterior lateral gutters. #9 placement infuse collagen sponge combined with Master graft in the posterior lateral gutters and ostial amp in the interbody spaces. Pending Studies Studies pending at discharge: no Medical Emergencies . Who to Call and When: Medical Emergencies: If at any time you feel your situation is an emergency, please call 911 immediately. . Non-Emergent Contact Non-Emergency issues call your: Primary Care Provider . "Provider Documentation" section prepared by Romulo Ching. . VTE Core Measure Inpt VTE Proph given/why not?: Mayelin Hsu, AJ's
--- NOTE | 2017-05-20 07:50 | Clinical Documentation Query ---
SY Tierney : CLINICAL DOCUMENTATION QUERY Patient is a 66 year old male admitted for removal of prior lumbar instrumentation, decompression and posterior lumbar interbody fusion. Preoperative H&H was 13.8 g/dl and 40.2%. POD #1, repeat values were 11.7 g/dl and 33.7%. This is in the setting of a negative balance I/O of greater than 1,200 ml's and a cumulative blood loss thus far of 730 ml's. He is being monitored with serial hematology and I/O including drain outputs. In your clinical opinion is this patient being managed for: ( ) Acute blood loss anemia ( ) Not Agree ( ) Other explanation of clinical findings (Please Explain) ( ) Unable to determine (Please Define) ( ) Need to Discuss The medical record reflects the following clinical findings, treatment, and risk factors. Clinical Indicators: Negative I/O balance, 730 ml's blood loss Treatment: Serial hematology, I/O Risk Factors: Surgery Please clarify and document your clinical opinion in the progress notes and discharge summary. Terms such as "probable", "suspected", "likely", "questionable", "possible", or "still to be ruled out" are acceptable. IF IN AGREEMENT, YOU MUST DOCUMENT ABOVE DIAGNOSTIC STATEMENT IN DAILY PROGRESS NOTES AND DISCHARGE SUMMARY. This document is not part of the patient's record. Thank You, Edgar Ellnigton RN [phone]
[2017-05-20 08:12] LABS: BUN/CREATININE RATIO 15.6 (10-20); CALCIUM 8.7 mg/dl (8.5-10.1); CREATININE 1.1 mg/dl (0.60-1.40); POTASSIUM 3.9 mmol/L (3.5-5.1)
--- NOTE | 2017-05-20 09:34 | Anesthesiology Progress Note ---
Anesthesia Post Op Note Date & Time May 20, 2017 at 09:34 Vital Signs Pain Intensity: 3.0 Vital Signs Past 12 Hours Date Time Temp Pulse Resp B/P (MAP) Pulse Ox O2 Delivery O2 Flow Rate FiO2 05/20/17 08:03 Room Air 05/20/17 07:22 37.1 75 18 136/69 (91) 96 Room Air 05/20/17 03:30 36.7 80 16 108/62 (77) 97 Room Air 05/19/17 23:15 Room Air 05/19/17 22:51 36.5 82 18 137/79 (98) 94 Room Air Notes Mental Status: alert / awake / arousable, participated in evaluation Pt Amnestic to Procedure: Yes Nausea / Vomiting: adequately controlled Pain: adequately controlled Airway Patency, RR, SpO2: stable & adequate BP & HR: stable & adequate Hydration State: stable & adequate Anesthetic Complications: no major complications apparent
--- NOTE | 2017-05-20 09:55 | Anesthesiology Progress Note ---
Anesthesia Post Op Note Date & Time May 20, 2017 at 09:55 Vital Signs Pain Intensity: 3.0 Vital Signs Past 12 Hours Date Time Temp Pulse Resp B/P (MAP) Pulse Ox O2 Delivery O2 Flow Rate FiO2 05/20/17 08:03 Room Air 05/20/17 07:22 37.1 75 18 136/69 (91) 96 Room Air 05/20/17 03:30 36.7 80 16 108/62 (77) 97 Room Air 05/19/17 23:15 Room Air 05/19/17 22:51 36.5 82 18 137/79 (98) 94 Room Air Notes Mental Status: alert / awake / arousable, participated in evaluation Pt Amnestic to Procedure: Yes Nausea / Vomiting: adequately controlled Pain: adequately controlled Airway Patency, RR, SpO2: stable & adequate BP & HR: stable & adequate Hydration State: stable & adequate Anesthetic Complications: no major complications apparent
[2017-05-20] MEDS: OXYCODONE HCL IR 5 MG TAB (IMMEDIATE RELEASE) PO PRN ×5 (10:11→23:29)
--- NOTE | 2017-05-20 11:19 | Progress Note ---
Progress Note Date of Service May 20, 2017. Progress Note Patient is postop day #1 multilevel decompression fusion. Back pain is controlled. Leg pain is markedly improved. On exam he is sitting bedside has good strength testing appears comfortable. Assessment status post lumbar depression fusion and fusion. Planned this time we'll initiate physical therapy advance his bowel regimen anticipate home the next day or so with home health.
[2017-05-20] MEDS: FINASTERIDE 5 MG TAB PO SCH (20:37)
[2017-05-20] MEDS: DOCUSATE SODIUM/SENNA 50/8.6MG TAB PO SCH (20:38)
[2017-05-20] MEDS: ESCITALOPRAM OXALATE 10 MG TAB PO SCH (20:38)
[2017-05-20] MEDS: SIMVASTATIN 20 MG TAB PO SCH (20:38)
[2017-05-20] MEDS: PANTOprazole SOD 40 MG TAB PO SCH (20:38)
[2017-05-20] MEDS: HYDROCHLOROTHIAZIDE 25 MG TAB PO SCH (20:39)
[2017-05-20] MEDS: IRBESARTAN 150 MG TAB PO SCH (20:39)
[2017-05-21] MEDS: POLYETHYLENE (MIRALAX) 17 GM PACK PO SCH ×4 (06:10→23:04)
[2017-05-21 07:31] VITALS: BP 102/62; PULSE 86; TEMP 36.9; O2SAT 98
[2017-05-21] MEDS: OXYCODONE HCL IR 5 MG TAB (IMMEDIATE RELEASE) PO PRN ×3 (07:57→18:29)
[2017-05-21 08:46] VITALS: O2SAT 98
[2017-05-21 11:57] VITALS: BP 134/82; PULSE 63; TEMP 36.7; O2SAT 99
[2017-05-21] MEDS: KETOROLAC TROMETHAMINE 30 MG/ML VIAL IV PRN (12:18)
--- NOTE | 2017-05-21 12:47 | Progress Note ---
Progress Note Date of Service May 21, 2017. Progress Note Patient is postop day #2. Back pain is controlled. Leg pain improved. Vital signs are stable. TOM drain still significant. Exam screw strength testing appears comfortable. Assessment status post lumbar depression fusion replant this time will maintain the TOM drain advance his bowel regiment anticipate possible home tomorrow. He will possibly need home health.
[2017-05-21 15:10] VITALS: BP 103/60; PULSE 64; TEMP 36.8; O2SAT 96
[2017-05-21 20:51] VITALS: BP 113/71; PULSE 77
[2017-05-21] MEDS: IRBESARTAN 150 MG TAB PO SCH (20:52)
[2017-05-21] MEDS: ESCITALOPRAM OXALATE 10 MG TAB PO SCH (20:52)
[2017-05-21] MEDS: HYDROCHLOROTHIAZIDE 25 MG TAB PO SCH (20:53)
[2017-05-21] MEDS: FINASTERIDE 5 MG TAB PO SCH (20:53)
[2017-05-21] MEDS: SIMVASTATIN 20 MG TAB PO SCH (20:54)
[2017-05-21] MEDS: PANTOprazole SOD 40 MG TAB PO SCH (20:54)
[2017-05-21] MEDS: DOCUSATE SODIUM/SENNA 50/8.6MG TAB PO SCH (20:54)
[2017-05-21 22:56] VITALS: BP 106/67; PULSE 65; TEMP 36.8; O2SAT 97
[2017-05-22] MEDS: POLYETHYLENE (MIRALAX) 17 GM PACK PO SCH (05:35)
[2017-05-22 07:02] VITALS: BP 106/68; PULSE 78; TEMP 36.8; O2SAT 96
[2017-05-22] MEDS: KETOROLAC TROMETHAMINE 30 MG/ML VIAL IV PRN ×2 (07:47→13:47)
[2017-05-22] MEDS: OXYCODONE HCL IR 5 MG TAB (IMMEDIATE RELEASE) PO PRN ×2 (07:48→13:33)
--- NOTE | 2017-05-22 08:05 | Discharge Summary ---
Orthopedic Discharge Summary Admission Date/Reason May 19, 2017 at 08:45 Lumbar Spinal Stenosis. Discharge Date/Disposition May 22, 2017 Home with services Diagnosis Principal Diagnosis: Lumbar spinal stenosis multilevel Procedure(s) Performed Removal of instrumentation L4 5, lumbar decompression with instrumented fusion L2-3, L3 4 Medication Reconciliation New Medications: Oxycodone HCl (Oxycodone HCl) 5 Mg Tab 5-10 MG PO Q4H PRN for Moderate - severe pain for 30 Days, #60 TAB Continued Medications: Acetaminophen (Tylenol Extra Strength) 500 Mg Tab 1000 MG PO Q8 for 30 Days, #180 TAB Calcium (Calcium) 600 Mg Tab 1 TAB PO QAM Cholecalciferol (D-1000) 1,000 Unit Tab 1 TAB PO HS Escitalopram (Lexapro) 10 Mg Tab 10 MG PO HS, TAB Finasteride (Proscar) 5 Mg Tab 5 MG PO HS, TAB Irbesartan-Hydrochlorothiazide (Avalide) 1 Tab Tab 1 TAB PO QPM, TAB Oxycodone HCl (Oxycodone HCl) 5 Mg Tab 5-10 MG PO Q4H PRN for Pain, #60 TAB Pantoprazole (Pantoprazole Sodium) 40 Mg Tab 1 TAB PO HS Psyllium (Metamucil) 0.52 Gm Cap 1 DOSE PO DAILY PRN for Constipation Simvastatin (Zocor) 20 Mg Tab 20 MG PO QPM, 0 Refills [potassium] () 595 MG PO QAM Discontinued Medications: Meloxicam (Mobic) 7.5 Mg Tab 15 MG PO QAM, TAB Admission Physical Exam As per Admitting History & Physical. Hospital Course Patient has done well throughout his hospital course. Lab values have been stable. He's been progressing in physical therapy. Pain is controlled. He will go home with TOM drain intact as well as health services. He was discharged home on postoperative day 3. Discharge Instructions Please refer to the electronic Patient Visit Report (Discharge Instructions) for additional information.
[2017-05-22] MEDS ORDERED: NURSING VERBAL MED ORDER ONE (09:15)
[2017-05-22 12:16] VITALS: BP 106/68; PULSE 78; TEMP 36.8; O2SAT 96
== END 2017-05-22 14:44 | disposition home health service (06) | DRG 455 ==
LOC: C.ACU 07:05 → C.3E 08:45 → ENRESERV 12:04
PROVIDERS: ADMIT Orthopaedic Surgery Orthopaedic Surgery of the Spine; ATTEND Orthopaedic Surgery Orthopaedic Surgery of the Spine
PROC: 0ST20ZZ Resection of Lumbar Vertebral Disc, Open Approach (ICD-10-PCS; principal; 2017-05-19 09:15)
PROC: 0SP004Z Removal of Internal Fixation Device from Lumbar Vertebral Joint, Open Approach (ICD-10-PCS; principal; 2017-05-19 09:15)
PROC: 0SG10AJ Fusion of 2 or more Lumbar Vertebral Joints with Interbody Fusion Device, Posterior Approach, Anterior Column, Open Approach (ICD-10-PCS; principal; 2017-05-19 09:15)
PROC: 0SG1071 Fusion of 2 or more Lumbar Vertebral Joints with Autologous Tissue Substitute, Posterior Approach, Posterior Column, Open Approach (ICD-10-PCS; principal; 2017-05-19 09:15)
DX: M48.061 Spinal stenosis, lumbar region without neurogenic claudication (principal); Z79.899 Other long term (current) drug therapy

== ENCOUNTER 2020-11-27 10:44 | Inpatient (IN) ==
--- NOTE | 2020-11-04 15:36 | PAT Medication Instructions ---
Medication Instructions Date of Service November 04, 2020 Home Medications amlodipine [Norvasc] 10 mg PO HS aspirin [Aspir-81] 81 mg PO QAM atorvastatin [Lipitor] 80 mg PO HS calcium carbonate [Calcium 600] 600 mg PO HS cholecalciferol (vitamin D3) [Vitamin D3] 25 mcg PO HS clopidogrel [Plavix] 75 mg PO QAM escitalopram oxalate [Lexapro] 20 mg PO QAM finasteride 5 mg PO HS hydrocodone-acetaminophen 1 - 2 tab PO Q6H PRN irbesartan-hydrochlorothiazide [Avalide] 1 tab PO HS pantoprazole [Protonix] 40 mg PO QAM potassium 99 mg PO HS tamsulosin [Flomax] 0.4 mg PO QAM ASK your prescriber and surgeon clopidogrel [Plavix] 75 mg PO QAM -- check with your supervisor blood before stopping Take morning of surgery With a small sip of water, OTHERWISE NOTHING TO EAT OR DRINK AFTER MIDNIGHT: aspirin [Aspir-81] 81 mg PO QAM escitalopram oxalate [Lexapro] 20 mg PO QAM pantoprazole [Protonix] 40 mg PO QAM tamsulosin [Flomax] 0.4 mg PO QAM hydrocodone-acetaminophen 1 - 2 tab PO Q6H PRN (if needed, may be taken up to four hours before surgery) Take evening before surgery amlodipine [Norvasc] 10 mg PO HS atorvastatin [Lipitor] 80 mg PO HS calcium carbonate [Calcium 600] 600 mg PO HS cholecalciferol [Vitamin D3] 25 mcg PO HS finasteride 5 mg PO HS hydrocodone-acetaminophen 1 - 2 tab PO Q6H PRN (if needed) irbesartan-hydrochlorothiazide [Avalide] 1 tab PO HS potassium 99 mg PO HS Other Notes If you have any questions please call us at [phone] or [phone] or [phone] or [phone]
--- NOTE | 2020-11-06 11:33 | Anesthesiology Consultation ---
Date of Service November 06, 2020 Assessment & Plan (1) Encounter for pre-operative examination: COVID Status: As of 11/06 assessment, patient denies travel to endemic area, known exposure/sick contacts, or symptoms of COVID19. Patient advised to adhere to social distancing guidelines, wear a mask in public and avoid large crowds or unnecessary travel in the 2 weeks leading up to surgery. Preoperative COVID19 testing to be completed prior to surgery per surgeon's arrangements (11/25). Patient encouraged to be extra cautious/conscientious with COVID precautions between COVID testing and surgery. Pt is fully vaccinated with Moderna vaccine. Abnormal CXR. Note and result sent to PCP for continuity of care. Chart Review Chart Review: Acceptable Risk for Surgery (pending cardio clearance 11/11) and Patient seen in Pre Admission Testing Teaching & Discussion Instructed NPO after midnight before surgery, except medications with 15 cc of water. Medication instructions provided according to the PAT guidelines. History Surgery Operation Date: 11/27/20 07:45 Proposed Procedures p T12-L2 Decompression Fusion, L2-L4 Hardware Removal, Spinal Cord Monitoring - Romulo Ching, Height/Weight Height: 5 ft 10 in Weight: 104.7 kg Allergies Allergy/AdvReac Type Severity Reaction Status Date / Time Iodinated Contrast Media Allergy Intermediate HIVES Verified 11/01/20 09:50 Medications Home Medications Medication Instructions Recorded Confirmed Last Taken amlodipine [Norvasc] 10 mg PO HS 11/01/20 11/01/20 Unknown aspirin [Aspir-81] 81 mg PO [facility] 11/01/20 11/01/20 Unknown atorvastatin [Lipitor] 80 mg PO HS 11/01/20 11/01/20 Unknown calcium carbonate [Calcium 600] 600 mg PO HS 11/01/20 11/01/20 Unknown cholecalciferol (vitamin D3) 25 mcg PO HS 11/01/20 11/01/20 Unknown [Vitamin D3] clopidogrel [Plavix] 75 mg PO QA 11/01/20 11/01/20 Unknown escitalopram oxalate [Lexapro] 20 mg PO QA 11/01/20 11/01/20 Unknown finasteride 5 mg PO HS 11/01/20 11/01/20 Unknown hydrocodone-acetaminophen 1 - 2 tab PO Q6H PRN 11/01/20 11/01/20 Unknown irbesartan-hydrochlorothiazide 1 tab PO HS 11/01/20 11/01/20 Unknown [Avalide] pantoprazole [Protonix] 40 mg PO QAM 11/01/20 11/01/20 Unknown potassium 99 mg PO 11/01/20 11/01/20 Unknown tamsulosin [Flomax] 0.4 mg PO QAM 11/01/20 11/01/20 Unknown Past Medical History Medical History (Updated 11/06/20 @ 16:04 by Mickey Khan) Anxiety BPH (benign prostatic hyperplasia) CAD (coronary artery disease) s/p single BEN 02/2020 [place]. Pt reports syncopal episode while kayaking, had normal stress test but ultimately had heart cath when chest discomfort/heart pounding symptoms persisted. Degenerative disc disease Depression GERD (gastroesophageal reflux disease) Hyperlipidemia Hypertension Urinary frequency Exercise / Class Metabolic Activity II 4-5 Yardwork/Stairs/Walk up hill (No CP or SOB with yardwork, active outside.) Past Family History Family History Sister Diabetes Brother Diabetes Past Surgical History Surgical History Fusion of spine x2 lumbar History of cataract surgery left History of cholecystectomy History of colonoscopy History of cystoscopy History of heart artery stent Feb 29, 2020 > BEN x1 > [facility] > follows Dr. Hernandez History of tonsillectomy History of tooth extraction History of total hip arthroplasty bilat Hx of toe surgery left big toe with hardware Past Anesthesia History No Hx of Anesthesia Complications and No Family Hx of Anesthesia Complications History of PONV No Hx of PONV and No Hx of Motion Sickness Social History Smoking Status: Former smoker Do You Dip or Chew Tobacco: No Smoking End Date: 1999 Hx Alcohol Use: Yes Alcohol type: beer alcohol intake frequency: a few times a month Hx Substance Use: No substance use type: does not use Review of Systems Pt denies any recent chest pain, shortness of breath, palpitations, cough, fever, URI, or uncontrolled acid reflux. Physical Exam Vital Signs BP: 110/67 P: 79bpm SPO2: 95% RA T: 98.4 F R: 16 ENMT Mouth: no dental restorations, no chipped teeth and no loose teeth Thyromental Distance: < 3.5 Finger Breadths (3) Mallampati Class: II Neck + limited neck extension and + facial hair (pt amenable to shaving) Respiratory normal respiratory effort, lungs clear to auscultation Cardiovascular RRR, no murmur, no edema Testing Laboratory Results 11/06/20 11:51 11/06/20 11:51 PT 10.3 Seconds (9.0-12.0) 11/06/20 11:51 INR 1.0 (0.9-1.1) 11/06/20 11:51 APTT 24.4 Seconds (21.0-31.0) 11/06/20 11:51 Urine Color Yellow 11/06/20 11:51 Urine Appearance Clear (Clear) 11/06/20 11:51 Urine pH 7.5 (4.5-7.5) 11/06/20 11:51 Ur Specific [place] 1.020 (1.000-1.030) 11/06/20 11:51 Urine Protein Negative (Negative) 11/06/20 11:51 Urine Glucose (UA) Negative (Negative) 11/06/20 11:51 Urine Ketones Negative (Negative) 11/06/20 11:51 Urine Nitrite Negative (Negative) 11/06/20 11:51 Ur Leukocyte Esterase Negative (Negative) 11/06/20 11:51 Blood Type O Positive 11/06/20 11:51 Antibody Screen NEGATIVE 11/06/20 11:51 Electrocardiogram Date: 11/06/20 Findings: + NSR @ (71bpm) and + no change from (2017) Chest X-Ray Date: 11/06/20 IMPRESSION: 1. There is a 1.3 cm left upper lobe pulmonary nodule. This is pathologically indeterminant and was also seen on 07/09/2016. If not previously performed, correlation with chest CT is again recommended for further assessment. 2. No airspace consolidation or pleural effusion is identified. This result was forwarded to the patient's PCP for follow-up. Echocardiogram Date: 01/25/20 EF: 55-60% Normal LV size and systolic function. Normal RV size and function. Mild mitral regurgitation. The right atrium is mildly enlarged. Normal diastolic function. Microbubble contrast with Definity was administered for LV opacification. No prior studies available for comparison. Stress Test Date: 01/24/20 Type: nuclear This is a normal regadenoson SPECT myocardial perfusion study, indicating that the probability of hemodynamically significant underlying coronary artery disease being present is low. Cardiac Catheterization Date: 03/20/20 Successful angioplasty and stenting of distal right coronary artery with a drug- eluting stent via right radial artery access.
[2020-11-06 12:27] LABS: Eosinophils # (auto) 0.11 K/uL (0-0.5); Eosinophils % (auto) 1.9 %; Hematocrit (blood only) 39.1 % (42-52); Hemoglobin 13.5 g/dL (14.0-18.0); Immature Granulocytes # (auto) 0.01 K/uL (0.00-0.02); Immature Granulocytes % (auto) 0.2 %; Lymphocytes # (auto) 1.92 K/uL (1.2-3.4); Lymphocytes % (auto) 32.8 %; Mean Corpuscular Hemoglobin 31.3 pg (25-34); Mean Corpuscular Hgb Conc 34.5 g/dL (32-36); Mean Corpuscular Volume 90.5 fL (80-100); Mean Platelet Volume 9.5 fL (7.4-10.4); Monocytes # (auto) 0.48 K/uL (0.11-0.59); Monocytes % (auto) 8.2 %; Neutrophils # (auto) 3.34 K/uL (1.4-6.5); Neutrophils % (auto) 56.9 %; Platelet Count 240 K/uL (130-400); RDW Coefficient of Variation 12.9 % (11.5-14.5); RDW Standard Deviation 42.9 fL (36.4-46.3); Red Blood Count 4.32 M/uL (4.7-6.1); White Blood Count 5.86 K/uL (4.8-10.8)
--- NOTE | 2020-11-06 12:31 | XRay Report ---
TWO VIEW CHEST CLINICAL HISTORY: Preoperative examination. Smoking history. FINDINGS: PA and lateral chest radiographs are compared to study dated 07/09/2016. The cardiomediastin al silhouette is unremarkable. Chronic interstitial thickening is similar to previous. There is a 1.3 cm left upper lobe pulmonary nodule. This is new from 10/10/2013. No airspace consolidation or pleura l effusion is identified. There is no pneumothorax. The bony thorax appears intact. Fusion hardware i s noted in the upper lumbar spine. Surgical clips are seen in the upper abdomen. IMPRESSION: 1. There is a 1.3 cm left upper lobe pulmonary nodule. This is pathologically indeterminant and was a lso seen on 07/09/2016. If not previously performed, correlation with chest CT is again recommended fo r further assessment. 2. No airspace consolidation or pleural effusion is identified. ACT 112: Positive. There are findings on this exam that require communication between the performing entity and the patient following Patient Test Result Information Act ([place] Act 112) guidelines. Electronically signed by: Lele Dominguez M.D. 11/06/2020 12:29 PM
[2020-11-06 12:39] LABS: Partial Thromboplastin Ratio 0.9; Partial Thromboplastin Time 24.4 Seconds (21.0-31.0); Prothrombin Time 10.3 Seconds (9.0-12.0)
--- NOTE | 2020-11-06 12:59 | Electrocardiogram Report ---
Test Reason : Blood Pressure : / mmHG Vent. Rate : 071 BPM Atrial Rate : 071 BPM P-R Int : 146 ms QRS Dur : 096 ms QT Int : 406 ms P-R-T Axes : 062 079 031 degrees QTc Int : 441 ms Normal sinus rhythm Normal ECG When compared with ECG of 09-JUL-2016 14:41, No significant change was found Confirmed by Munir Pruitt ([id number]) on 11/06/2020 12:58:54 PM Referred By: Romulo Ching Confirmed By:Niels Pruitt
[2020-11-06 13:12] LABS: Calcium 8.8 mg/dl (8.5-10.1); Creatinine Clr Calc Pharmacy 96.3 ml/min; Est GFR (African American) 101.8 ml/min; Est GFR (Non-African American) 87.9 ml/min; Potassium 3.8 mmol/L (3.5-5.1)
[2020-11-06 13:32] LABS: Appearance Urine Clear (Clear); Bilirubin Urine Negative (Negative); Blood Urine Negative (Negative); Color Urine Yellow; Glucose Urine UA Negative (Negative); Ketones Urine Negative (Negative); Leukocyte Esterase Urine Negative (Negative); Nitrite Urine Negative (Negative); Protein Urine Negative (Negative); Urobilinogen Urine Negative (Negative); pH Urine 7.5 (4.5-7.5)
[~2020-11-27 10:44] MED LIST changes: -ACET-1138 PO; +ACETAMINOPHEN 500 MG TAB PO SCH; -CALC600T37 PO; -CEFAZOLIN 2000MG IV PUSH 10 ML IV SCH; -CHOLTAB5 PO; +CeleBREX 200 MG CAP PO SCH; -ESCI10TA17 PO; -FINA5TAB PO; +GABAPENTIN 300 MG CAP PO SCH; -IRBE-41 PO; -LACTATED RINGER'S 1000ML 1,000 ML IV SCH; +LR 15ML/HR IV SCH; -MELO7.5T5 PO; -PANT40TA2 PO; -PSYL0.524 PO; -RXC5 PO; -SIMV20TA2 PO; +ceFAZolin 2000MG 2,000 MG/15 ML SYR IV SCH; -potassium PO
[2020-11-27] MEDS ORDERED: ePHEDrine sulfate 50 MG/ML AMP IV PRN (12:54)
[2020-11-27] MEDS ORDERED: HYDROmorphone INJ 2 MG/ML SYR/VIAL IV PRN (12:54)
[2020-11-27] MEDS ORDERED: METOCLOPRAMIDE HCL INJ 5 MG/ML 2 ML VIAL IV PRN ×2 (12:54→17:55)
[2020-11-27] MEDS ORDERED: ATROPINE SULFATE 0.1 MG/ML 10ML SYR IV PRN (12:54)
[2020-11-27] MEDS ORDERED: ONDANSETRON INJ 2 MG/ML 2 ML VIAL IV PRN ×2 (12:54→17:55)
[2020-11-27] MEDS ORDERED: PROMETHAZINE HCL 12.5 MG in SODIUM CHLORIDE 0.9% 50 ML IV PRN ×2 (12:54→17:55)
[2020-11-27] MEDS ORDERED: fentaNYL citrate 100 MCG/2 ML VIAL ONE (13:10)
[2020-11-27] MEDS ORDERED: MIDAZOLAM HCL 1 MG/ML 2ML VIAL ONE (13:10)
--- NOTE | 2020-11-27 13:24 | History & Physical Bridge Note ---
Date of Service November 27, 2020 History & Physical Bridge Note I have examined the patient, reviewed the History & Physical and in the interval since the performance of the History & Physical I have noted the following changes of clinical significance: no changes noted
--- NOTE | 2020-11-27 13:25 | History & Physical Report ---
Date of Service November 27, 2020 Assessment & Plan (1) Lumbar stenosis with neurogenic claudication: Admission and Anticipated Discharge Date Admission Date: T12-L2 decompression fusion, L2-L4 hardware removal History of Present Illness Chief Complaint: Chronic persistent back pain Primary Care Provider: Hussein Barnes This is a 70-year-old male well-known to me the presents with chronic persistent back pain. Failing since course of nonoperative care is here for surgical invention. Allergies Allergy/AdvReac Type Severity Reaction Status Date / Time Iodinated Contrast Media Allergy Intermediate HIVES Verified 11/27/20 11:08 Home Medications Medication Instructions Recorded Confirmed Type amlodipine [Norvasc] 10 mg PO HS 11/01/20 11/27/20 History aspirin [Aspir-81] 81 mg PO QAM 11/01/20 11/27/20 History atorvastatin [Lipitor] 80 mg PO HS 11/01/20 11/27/20 History calcium carbonate [Calcium 600] 600 mg PO HS 11/01/20 11/27/20 History cholecalciferol (vitamin D3) 25 mcg PO HS 11/01/20 11/27/20 History [Vitamin D3] clopidogrel [Plavix] 75 mg PO QAM 11/01/20 11/27/20 History escitalopram oxalate [Lexapro] 20 mg PO QAM 11/01/20 11/27/20 History finasteride 5 mg PO HS 11/01/20 11/27/20 History hydrocodone-acetaminophen 1 - 2 tab PO Q6H PRN 11/01/20 11/27/20 History irbesartan-hydrochlorothiazide 1 tab PO HS 11/01/20 11/27/20 History [Avalide] pantoprazole [Protonix] 40 mg PO QAM 11/01/20 11/27/20 History potassium 99 mg PO HS 11/01/20 11/27/20 History tamsulosin [Flomax] 0.4 mg PO QAM 11/01/20 11/27/20 History Past Med/Surg History Medical History Anxiety BPH (benign prostatic hyperplasia) CAD (coronary artery disease) s/p single BEN 02/2020 [place]. Pt reports syncopal episode while kayaking, had normal stress test but ultimately had heart cath when chest discomfort/heart pounding symptoms persisted. Degenerative disc disease Depression GERD (gastroesophageal reflux disease) Hyperlipidemia Hypertension Urinary frequency Surgical History Fusion of spine x2 lumbar History of cataract surgery left History of cholecystectomy History of colonoscopy History of cystoscopy History of heart artery stent Feb 29, 2020 > [facility] x1 > [facility] > follows Dr. Hernandez History of tonsillectomy History of tooth extraction History of total hip arthroplasty bilat Hx of toe surgery left big toe with hardware Family History Sister Diabetes Brother Diabetes Social History Smoking Status: Former smoker Smoking End Date: 1999; Second Hand Exposure: Yes ( smokes); Do You Dip or Chew Tobacco: No; Tobacco Cessation Education Requested by Patient: No Hx Alcohol Use: Yes Alcohol type: beer Hx Substance Use: No Preferred Language: Salvadorean Communication Ability: Effective Human Service Specialist Required: No Beliefs That Will Affect Care: None Current Living Situation: Spouse Other Information That Helps Us Care for You: No Feels Safe at Home: Yes Safety Concerns: Feels Safe At This Time Assistive Devices: Cane and Glasses Physical Exam Physical Exam: Patient is alert and oriented Heart regular in rhythm Lungs clear to auscultation Results & Data ([facility]) Vital Signs (Past 12 Hours) Vital Signs Temp Pulse Resp BP Pulse Ox 11/27/20 11:15 37.3 C 74 17 145/88 H 96
[2020-11-27] MEDS ORDERED: BUPIVACAINE/EPINEPHRINE 0.5% MPF 1:200,000 30 ML VIAL ONE (13:42)
[2020-11-27] MEDS ORDERED: PROPOFOL IV EMULSION 10 MG/ML 20 ML VIAL IV ONE (13:45)
[2020-11-27] MEDS ORDERED: ONDANSETRON INJ 2 MG/ML 2 ML VIAL ONE (13:45)
[2020-11-27] MEDS ORDERED: DEXAMETHASONE SOD INJ 4 MG/ML VIAL ONE (13:45)
[2020-11-27] MEDS ORDERED: ROCURONIUM BROMIDE 10 MG/ML 5 ML VIAL IV ONE (13:45)
[2020-11-27] MEDS ORDERED: LIDOCAINE 2% 2 ML VIAL/AMP(20MG/ML) INFIL ONE (13:45)
[2020-11-27] MEDS ORDERED: ePHEDrine sulfate 50 MG/ML AMP ONE (14:34)
[2020-11-27] MEDS ORDERED: NEOSTIGMINE METHYLSULFATE 1 MG/ML 10ML VIAL ONE (14:42)
[2020-11-27] MEDS ORDERED: GLYCOPYRROLATE 0.2 MG/ML VIAL ONE (14:42)
[2020-11-27] MEDS ORDERED: FLOSEAL HEMOSTATIC MATRIX 10ML TOP ONE (15:18)
--- NOTE | 2020-11-27 15:54 | Operative Report ---
Post Operative Report Pre & Post Diagnosis Operation Date: 11/27/20 12:25 Pre-Op Diagnosis: Lumbar stenosis with neurogenic claudication Post-Op Diagnosis: Lumbar stenosis with neurogenic claudication I identified the patient and participated in the time-out.: Yes Procedure Operation Date: 11/27/20 12:25 Actual Procedures #1 Removal of posterior instrumentation L2-3 L3-4. #2 exploration of fusion L2-3 L3-4. #3 lumbar decompression with bilateral medial facetectomies and foraminotomies T12-L1 L1-L2. #4 posterior spinal fusion T12-L2. #5 placed a posterior instrumentation T12-L2. #6 interbody fusion L1-L2. #7 placement of peek cage 9 x 26 mm L1-L2. #8 placement locally harvested morselized autograft in the posterior gutters. #9 placement infuse collagen sponge, master graft in the posterior lateral gutters and I factor in the interbody space. Surgeon Romulo Ching, DO [employer] Nette Grant Estimated Blood Loss 250 Findings See Below The patient is 5 foot 10 weighing over 102 kg with a BMI in excess of 32. The patient's body habitus does contribute to significant technical difficulty requiring her deepest retractors longus instruments in order to perform his procedure. This at least 50% increase to the operative time. Specimens None Indications This is a 62-year-old male who presents above-mentioned diagnosis after failing course of nonoperative care is here for surgical invention. Description of Procedure Patient was met with identified informed consent obtained. Patient was then taken to the operative suite underwent ablation placed in a prone position the [place] table top Lior frame. All bony prominences well-padded eyes inspected to ensure no external pressure placed upon the. This point the lumbar spine was prepped and draped in a sterile fashion. Sharp dissection with the assistance of Bovie cautery was performed down to and exposing the lamina and transverse processes of T12-L1 and instrumentation at L2-L3-L4 bilaterally. Then proceeded move the hardware bilaterally explore the fusion mass noting it to be mature and intact. Then performed complete laminectomy L1 partial laminectomy of T12 including bilateral medial facetectomies and foraminotomies addressing severe spinal stenosis. Pedicle screws were then placed in T12-L1 and L2 bilaterally with assistance of fluoroscopy and appropriate lalit placed. By way of a transforaminal portion right complete discectomy of L1-L2 was performed en dplates curetted to subcortical bleeding bone and the 9 x 26 mm peek cage filled I factor tapped in position. The rods then locked in final position bilaterally. The transverse processes of T12-L1 and L2 were then burred to subcortically bone. Infuse collagen sponge mass graft local autograft was then placed in the posterior lateral gutters. 15 round TOM drain inserted. The incision was then closed with 1 Vicryl in the fascia 2-0 Vicryl subcutaneously and 4 Monocryl for final skin closure. Steri-Strip sterile dressings placed. Patient waken taken to PACU stable condition. Please note spinal cord monitoring was utilized at the procedure no changes noted. Lastly Nette Grant was present at the entire surgery and while the patient positioning complex portions of the surgery and final skin closure. I attest to the content of the Intraoperative Record and any orders documented therein. Any exceptions are noted below.
--- NOTE | 2020-11-27 16:26 | Fluoroscopy Report ---
FL lumbar spine 2-3V CLINICAL HISTORY: L2-4 REMOVE HARDWARE/T12-L2 DECOMPRESSION/FUSION/INTERBODY COMPARISON STUDY: Lumbar spine 05/19/2017. FLUOROSCOPY TIME: 21 seconds. FINDINGS: 2 fluoroscopic spot images of the lumbar spine demonstrate posterior decompression and fusi on within the upper lumbar spine with pedicle screws and rods. The hardware is intact. The exact leve ls are difficult to assess due to the limited imaging. IMPRESSION: Fluoroscopy provided for posterior fusion of the upper lumbar spine. The exact levels are difficult to assess but on limited imaging. ACT 112: Negative or not required by law. Electronically signed by: Morgan Sun M.D. 11/27/2020 4:25 PM
[2020-11-27] MEDS: fentaNYL citrate 100 MCG/2 ML VIAL IV PRN ×4 (16:40→16:59)
[2020-11-27] MEDS ORDERED: DO NOT ADMINISTER FLU VACCINE PRN (17:55)
[2020-11-27] MEDS ORDERED: LORazepam 0.5 MG TAB PO PRN (17:55)
[2020-11-27] MEDS ORDERED: LORazepam 0.5 MG/1 ML VIAL IV PRN (17:55)
[2020-11-27] MEDS ORDERED: ONDANSETRON 4 MG OD TAB PO PRN (17:55)
[2020-11-27] MEDS ORDERED: HYDROmorphone INJ 0.5 MG/0.5 ML SYR IV PRN (17:55)
[2020-11-27] MEDS ORDERED: MAGNESIUM HYDROXIDE SUSP 30 ML UDC PO PRN (17:55)
[2020-11-27] MEDS ORDERED: HYDROmorphone INJ 1 MG/ML SYRINGE IV PRN (17:55)
[2020-11-27] MEDS ORDERED: diphenhydrAMINE Capsule 25 MG CAP PO PRN (17:55)
[2020-11-27] MEDS ORDERED: DO NOT ADMINISTER PNEUMOCOCCAL VACCINE PRN (17:55)
[2020-11-27] MEDS ORDERED: hydrOXYzine HCl 25 MG TAB PO PRN (17:55)
[2020-11-27] MEDS ORDERED: FAMOTIDINE 20 MG TAB PO PRN (17:55)
[2020-11-27] MEDS ORDERED: SOD PHOSPHATE/SOD BIPHOSPHATE ENEMA 132 ML BTL PR PRN (17:55)
[2020-11-27] MEDS ORDERED: ALUMINUM/MAGNESIUM SUSP 30 ML UDC PO PRN (17:55)
[2020-11-27] MEDS ORDERED: ACETAMINOPHEN 1,000 MG/100 ML VIAL IV PRN (17:55)
[2020-11-27] MEDS ORDERED: traMADol HCL 50 MG TABLET PO PRN (17:55)
[2020-11-27] MEDS ORDERED: NALOXONE HCL 0.4 MG/1 ML VIAL/CARP IV PRN (17:55)
[2020-11-27] MEDS: LACTATED RINGER'S 1,000 ML IV SCH (18:16)
--- NOTE | 2020-11-27 18:47 | Consultation ---
Date of Consultation November 27, 2020 Assessment & Plan (1) Status post lumbar surgery: Post op day#0 S/P T12-L2 decompression and fusion by Dr Ching EBVale #250 mL -pain management per ortho -wound management per ortho -PT/OT as appropriate -DVT prophylaxis per ortho -incentive spirometry -monitor H&H for acute blood loss anemia; preop Hgb: 13.5 (2) CAD (coronary artery disease): S/p BEN in 02/2020 Denies chest pain, shortness of breath -Continue aspirin, atorvastatin -Plavix on hold (3) Hypertension: -Continue amlodipine, irbesartan -Hold HCTZ for now (4) Hyperlipidemia: -Continue atorvastatin (5) Depression: (6) Anxiety: -Continue Lexapro (7) GERD (gastroesophageal reflux disease): -Continue PPI (8) BPH (benign prostatic hyperplasia): -Continue finasteride, tamsulosin DVT Prophylaxis -SCDs per ortho Disposition per primary service Follows with Dr Barnes in [place] for routine care Pt was seen and care coordinated with Dr Mcgee. See addendum Thank you for this consultation. We will follow the patient with you during their hospital stay. You can reach a member of the [facility]ist Team 11/01 via tiger text or pager @ [phone]. Supervising Physician Co-Signing Physician Notes Attending addendum: The patient was seen and examined on medical floor He is a status post lumbar back surgery Complains of some pain at the back without any numbness and tingling in the extremities Denies any chest pain, palpitation and shortness of breath No abdominal pain nausea and or vomiting On examination Lying in bed without any acute distress Hemodynamically stable Chest clear to auscultate bilateral HeartS1-S2 regular Abdomenbenign Extremitiesno edema CNSalert, awake and oriented x3 Her preadmission labs and EKG and imaging studies reviewed He is a status post lumbar decompression and fusion Significant other medical condition as mentioned in H&P Medical status remains stable Reviewed assessment plan as outlined above by HELENA Valdivia Dr History of Present Illness Requesting Physician: Dr. Ching Reason for Consultation: Postop medical management Attending Physician: Romulo Ching, DO History of Present Illness Pt is 70-year-old male with PMH CAD s/p BEN in 02/2020, HTN, HLD, anxiety, depression, GERD, BPH seen in medical consultation s/p T12-L2 decompression and fusion today by Dr. Ching. Postop patient reporting low back pain. Denies lower extremity pain or paresthesias. Denies nausea, vomiting, shortness of breath, chest pain, palpitations, dizziness. Has Weaver catheter in place. Reports last BM this morning. Denies fever/chills, RIVERA, neck pain, abdominal pain, paresthesias, weakness,extremity edema, rashes, urinary symptoms. Allergies Allergy/AdvReac Type Severity Reaction Status Date / Time Iodinated Contrast Media Allergy Intermediate HIVES Verified 11/27/20 11:08 Home Medications Medication Instructions Recorded Confirmed Type amlodipine [Norvasc] 10 mg PO HS 11/01/20 11/27/20 History aspirin [Aspir-81] 81 mg PO QAM 11/01/20 11/27/20 History atorvastatin [Lipitor] 80 mg PO HS 11/01/20 11/27/20 History calcium carbonate [Calcium 600] 600 mg PO HS 11/01/20 11/27/20 History cholecalciferol (vitamin D3) 25 mcg PO HS 11/01/20 11/27/20 History [Vitamin D3] clopidogrel [Plavix] 75 mg PO QAM 11/01/20 11/27/20 History escitalopram oxalate [Lexapro] 20 mg PO QAM 11/01/20 11/27/20 History finasteride 5 mg PO HS 11/01/20 11/27/20 History hydrocodone-acetaminophen 1 - 2 tab PO Q6H PRN 11/01/20 11/27/20 History irbesartan-hydrochlorothiazide 1 tab PO HS 11/01/20 11/27/20 History [Avalide] pantoprazole [Protonix] 40 mg PO QAM 11/01/20 11/27/20 History potassium 99 mg PO HS 11/01/20 11/27/20 History tamsulosin [Flomax] 0.4 mg PO QAM 11/01/20 11/27/20 History Patient History Medical History Anxiety BPH (benign prostatic hyperplasia) CAD (coronary artery disease) s/p single BEN 02/2020 [place]. Pt reports syncopal episode while kayaking, had normal stress test but ultimately had heart cath when chest discomfort/heart pounding symptoms persisted. Degenerative disc disease Depression GERD (gastroesophageal reflux disease) Hyperlipidemia Hypertension Urinary frequency Surgical History Fusion of spine x2 lumbar History of cataract surgery left History of cholecystectomy History of colonoscopy History of cystoscopy History of heart artery stent Feb 29, 2020 > BEN x1 > [facility] > follows Dr. Hernandez History of tonsillectomy History of tooth extraction History of total hip arthroplasty bilat Hx of toe surgery left big toe with hardware Family History Sister Diabetes Brother Diabetes Social History Smoking Status: Former smoker Smoking End Date: 1999; Second Hand Exposure: Yes ( smokes); Do You Dip or Chew Tobacco: No; Tobacco Cessation Education Requested by Patient: No Hx Alcohol Use: Yes Alcohol type: beer Hx Substance Use: No Preferred Language: Korean Communication Ability: Effective Supervisor Landscape Required: No Beliefs That Will Affect Care: None Current Living Situation: Spouse Other Information That Helps Us Care for You: No Feels Safe at Home: Yes Safety Concerns: Feels Safe At This Time Assistive Devices: None Review of Systems Review of Systems: All systems reviewed & are unremarkable except as noted in HPI & below Physical Exam Physical Exam: General: no distress, WDWN Head: normocephalic, atraumatic Eyes:conjunctiva non-injected, anicteric ENT: normal inspection external ears, nose, mucous membranes moist Neck: supple, trachea midline Lungs: clear, no respiratory distress, no wheezing/rhonchi/rales CV: RRR, no murmur, no pretibial edema Abd: normal BS, soft, non-tender Back: TOM drain in place with serosanguineous drainage Ext: no cyanosis, no calf tenderness, pedal pushes and pulls intact bilaterally, distal pulses intact, sensation to light touch intact Neuro: A&O x 3, no focal deficits noted, normal affect Skin: warm, dry Results & Data ([facility]) Vital Signs (Past 12 Hours) Vital Signs Temp Pulse Pulse Pulse Resp BP Pulse Ox 06/09/21 17:58 36.9 C 78 18 111/69 99 11/27/20 17:45 36.9 C 80 16 111/69 99 11/27/20 17:10 36.4 C L 78 12 127/59 L 96 11/27/20 17:00 76 12 135/65 98 11/27/20 16:50 72 14 119/64 96 11/27/20 16:40 68 14 127/65 99 11/27/20 16:30 71 14 110/51 L 100 11/27/20 16:20 62 12 99/50 L 100 11/27/20 16:13 36.0 C L 61 14 88/42 L 100 11/27/20 11:15 37.3 C 74 17 145/88 H 96
[2020-11-27] MEDS: KETOROLAC TROMETHAMINE 15 MG/ML VIAL IV SCH (19:20)
--- NOTE | 2020-11-27 19:21 | Anesthesiology Progress Note ---
Date of Service November 27, 2020 Anesthesia Post Procedure Vital Signs Vital Signs: Temp Pulse Pulse Pulse Resp BP Pulse Ox 11/27/20 18:57 36.4 C L 83 18 128/71 96 11/27/20 17:58 36.9 C 78 18 111/69 99 11/27/20 17:45 36.9 C 80 16 111/69 99 11/27/20 17:10 36.4 C L 78 12 127/59 L 96 11/27/20 17:00 76 12 135/65 98 11/27/20 16:50 72 14 119/64 96 11/27/20 16:40 68 14 127/65 99 11/27/20 16:30 71 14 110/51 L 100 11/27/20 16:20 62 12 99/50 L 100 11/27/20 16:13 36.0 C L 61 14 88/42 L 100 11/27/20 11:15 37.3 C 74 17 145/88 H 96 Pain Intensity Lower Back: Pain Intensity: 6 Transfer of Care Handoff Completed per policy Notes Mental Status: alert / awake / arousable and participated in evaluation Patient Amnestic to Procedure: Yes Nausea / Vomiting: adequately controlled Pain: adequately controlled Airway Patency, RR, SpO2: stable & adequate BP & HR: stable & adequate Hydration State: stable & adequate Anesthetic Complications: no major complications apparent and Pt Satisfied with anesthetic care
[2020-11-27] MEDS ORDERED: NON-FORMULARY MEDICATION (Potassium 99 mg Tablet) PO SCH (21:00)
[2020-11-27] MEDS: ceFAZolin 2000MG 2,000 MG/15 ML SYR IV SCH (21:52)
[2020-11-27] MEDS: amLODIPine BESYLATE 5 MG TAB PO SCH (21:56)
[2020-11-27] MEDS: ATORVASTATIN 40 MG TAB PO SCH (21:56)
[2020-11-27] MEDS: CALCIUM 600MG + VIT D 400 IU TAB PO SCH (21:57)
[2020-11-27] MEDS: DOCUSATE SODIUM/SENNA 50/8.6MG TAB PO SCH (21:57)
[2020-11-27] MEDS: CHOLECALCIFEROL 1,000 UNITS 25 MCG TAB PO SCH (21:58)
[2020-11-27] MEDS: FINASTERIDE 5 MG TAB PO SCH (21:58)
[2020-11-27] MEDS: IRBESARTAN 150 MG TAB PO SCH (21:59)
[2020-11-27] MEDS: oxyCODONE HCL IR 5 MG TAB (IMMEDIATE RELEASE) PO PRN (23:58)
[2020-11-28] MEDS: LACTATED RINGER'S 1,000 ML IV SCH (00:12)
[2020-11-28] MEDS: KETOROLAC TROMETHAMINE 15 MG/ML VIAL IV SCH ×3 (01:48→14:54)
[2020-11-28] MEDS: POLYETHYLENE (MIRALAX) 17 GM PACK PO SCH ×4 (05:12→23:00)
[2020-11-28] MEDS: ceFAZolin 2000MG 2,000 MG/15 ML SYR IV SCH (05:12)
[2020-11-28 06:24] LABS: Hematocrit (blood only) 32.2 % (42-52); Hemoglobin 10.9 g/dL (14.0-18.0); Immature Granulocytes # (auto) 0.03 K/uL (0.00-0.02); Immature Granulocytes % (auto) 0.3 %; Lymphocytes # (auto) 0.84 K/uL (1.2-3.4); Lymphocytes % (auto) 7.3 %; Mean Corpuscular Hemoglobin 30.6 pg (25-34); Mean Corpuscular Hgb Conc 33.9 g/dL (32-36); Mean Corpuscular Volume 90.4 fL (80-100); Mean Platelet Volume 9.3 fL (7.4-10.4); Monocytes % (auto) 5.2 %; Neutrophils # (auto) 9.96 K/uL (1.4-6.5); Neutrophils % (auto) 87.2 %; Platelet Count 209 K/uL (130-400); RDW Coefficient of Variation 12.8 % (11.5-14.5); RDW Standard Deviation 42.5 fL (36.4-46.3); Red Blood Count 3.56 M/uL (4.7-6.1); White Blood Count 11.43 K/uL (4.8-10.8)
[2020-11-28 06:52] LABS: BUN Creatinine Ratio 19.7 (10-20); Calcium 8.2 mg/dl (8.5-10.1); Creatinine Clr Calc Pharmacy 89.1 ml/min; Est GFR (African American) 94.9 ml/min; Est GFR (Non-African American) 81.9 ml/min; Potassium 4.3 mmol/L (3.5-5.1)
[2020-11-28] MEDS: TAMSULOSIN HCL 0.4 MG CAP PO SCH (07:58)
[2020-11-28] MEDS: ESCITALOPRAM OXALATE 20 MG TAB PO SCH (07:58)
[2020-11-28] MEDS: PANTOprazole 40 MG TAB PO SCH (07:59)
[2020-11-28] MEDS: ASPIRIN 81 MG ECTAB PO SCH (07:59)
--- NOTE | 2020-11-28 09:34 | Hospitalist Progress Note ---
Date of Service November 28, 2020 Assessment & Plan (1) Status post lumbar surgery: Post op day#1 S/P T12-L2 decompression and fusion by Dr Ching Per ortho for pain control, wound care, anticoagulation and activities Continue incentive spirometry, PT/OT when appropriate Post op blood loss anemia EBL: 250ml Hgb 10.9 today (pre-op hgb 13.5) Asymptomatic. BP improved to 138/81 during time of evaluation (2) CAD (coronary artery disease): S/p BEN in 02/2020 Denies chest pain, shortness of breath Continue aspirin, atorvastatin Plavix on hold, will resume as per Dr. Ching (3) Hypertension: Continue amlodipine, irbesartan Plan to resume HCTZ tomorrow AM (4) Hyperlipidemia: Continue atorvastatin (5) Depression: (6) Anxiety: Continue Lexapro (7) GERD (gastroesophageal reflux disease): Continue PPI (8) BPH (benign prostatic hyperplasia): Continue finasteride, tamsulosin DVT Prophylaxis SCDs per ortho Disposition per primary service Follows with Dr. Barnes in [place] for routine care Pt was seen and care coordinated with Dr Mcgee. See addendum Thank you for this consultation. We will follow the patient with you during their hospital stay. You can reach [facility] via tiger text. Admission and Anticipated Discharge Date Admission Date: November 27, 2020 Supervising Physician Co-Signing Physician Notes Attending addendum: The patient was seen and examined in medical floor Is a status post lumbar surgery and has been doing great following the surgery He will be discharged on Wednesday as per the primary On examination Sitting on a chair without any acute distress Hemodynamically stable with blood pressure on the lower side Chest-clear to auscultate bilaterally Heart-S1-S2 regular Abdomen-benign Extremities-negative for any edema His labs reviewed Remains stable medically Agree with assessment plan as outlined above by HELENA Styles Dr Subjective Seen and examined in 324-1. Feeling well today. Participated with PT and ambulated in halls with some discomfort. Denies any lightheadedness, chest pain, SOB or near syncope. Tolerating diet without nausea or vomiting. No abdominal pain. Weaver catheter removed. Not yet passing flatus. Review of Systems Review of Systems: At least ten systems reviewed and negative except as noted in the HPI. Physical Exam Physical Exam: General: no distress, WDWN Head: normocephalic, atraumatic Eyes:conjunctiva non-injected, anicteric ENT: normal inspection external ears, nose, mucous membranes moist Neck: supple, trachea midline Lungs: clear, no respiratory distress, no wheezing/rhonchi/rales CV: RRR, no murmur, no pretibial edema Abd: normal BS, soft, non-tender Back: TOM drain in place with serosanguineous drainage Ext: no cyanosis, no calf tenderness, pedal pushes and pulls intact bilaterally, distal pulses intact, sensation to light touch intact Neuro: A&O x 3, no focal deficits noted, normal affect Skin: warm, dry Results & Data Results & Data ([facility]) Vital Signs (Past 12 Hours) Vital Signs Temp Pulse Resp BP Pulse Ox 11/28/20 07:50 36.7 C 78 16 93/58 L 94 11/28/20 03:33 36.6 C 82 18 99/63 L 93 11/27/20 21:55 88 119/83 Laboratory Results Short CBC 11/28/20 Range/Units 05:59 WBC 11.43 H (4.8-10.8) K/uL Hgb 10.9 L (14.0-18.0) g/dL Hct 32.2 L (42-52) % Plt Count 209 (130-400) K/uL BMP 11/28/20 05:59 Sodium 135 L Potassium 4.3 Chloride 102 Carbon Dioxide 26 BUN 19 H Creatinine 0.95 Glucose 150 H Calcium 8.2 L Diagnostic Findings Chest X-Ray 11/06/20 08:27 TWO VIEW CHEST CLINICAL HISTORY: Preoperative examination. Smoking history. FINDINGS: PA and lateral chest radiographs are compared to study dated . The cardiomediastinal silhouette is unremarkable. Chronic interstitial thickening is similar to previous. There is a 1.3 cm left upper lobe pulmonary nodule. This is new from 10/10/2013. No airspace consolidation or pleural effusion is identified. There is no pneumothorax. The bony thorax appears intact. Fusion hardware is noted in the upper lumbar spine. Surgical clips are seen in the upper abdomen. IMPRESSION: 1. There is a 1.3 cm left upper lobe pulmonary nodule. This is pathologically indeterminant and was also seen on 07/09/2016. If not previously performed, correlation with chest CT is again recommended for further assessment. 2. No airspace consolidation or pleural effusion is identified. ACT 112: Positive. There are findings on this exam that require communication between the performing entity and the patient following Patient Test Result Information Act ([place] Act 112) guidelines. Electronically signed by: Lele Dominguez M.D. 11/06/2020 12:29 PM Lumbar Spine X-Ray 11/27/20 12:25 [place] lumbar spine 2-3V CLINICAL HISTORY: L2-4 REMOVE HARDWARE/T12-L2 DECOMPRESSION/FUSION/INTERBODY COMPARISON STUDY: Lumbar spine 05/19/2017. FLUOROSCOPY TIME: 21 seconds. FINDINGS: 2 fluoroscopic spot images of the lumbar spine demonstrate posterior decompression and fusion within the upper lumbar spine with pedicle screws and rods. The hardware is intact. The exact levels are difficult to assess due to the limited imaging. IMPRESSION: Fluoroscopy provided for posterior fusion of the upper lumbar spine. The exact levels are difficult to assess but on limited imaging. ACT 112: Negative or not required by law. Electronically signed by: Morgan Sun M.D. 11/27/2020 4:25 PM
[2020-11-28] MEDS: oxyCODONE HCL IR 5 MG TAB (IMMEDIATE RELEASE) PO PRN ×2 (09:55→21:08)
--- NOTE | 2020-11-28 10:50 | Orthopedic Progress Note ---
Date of Service November 28, 2020 Assessment & Plan (1) Lumbar stenosis with neurogenic claudication: Admission and Anticipated Discharge Date Admission Date: November 27, 2020 Subjective Back pain controlled leg pain markedly improved Physical Exam Physical Exam: Patient is comfortably sitting in the chair at the bedside. Is good strength testing. Results & Data ([facility]) Vital Signs (Past 12 Hours) Vital Signs Temp Pulse Resp BP Pulse Ox 11/28/20 07:50 36.7 C 78 16 93/58 L 94 11/28/20 03:33 36.6 C 82 18 99/63 L 93
[2020-11-28] MEDS: IRBESARTAN 150 MG TAB PO SCH (21:10)
[2020-11-28] MEDS: ATORVASTATIN 40 MG TAB PO SCH (21:10)
[2020-11-28] MEDS: CALCIUM 600MG + VIT D 400 IU TAB PO SCH (21:10)
[2020-11-28] MEDS: CHOLECALCIFEROL 1,000 UNITS 25 MCG TAB PO SCH (21:10)
[2020-11-28] MEDS: FINASTERIDE 5 MG TAB PO SCH (21:10)
[2020-11-28] MEDS: amLODIPine BESYLATE 5 MG TAB PO SCH (21:11)
[2020-11-28] MEDS: DOCUSATE SODIUM/SENNA 50/8.6MG TAB PO SCH (21:11)
[2020-11-29] MEDS: oxyCODONE HCL IR 5 MG TAB (IMMEDIATE RELEASE) PO PRN ×3 (03:42→22:25)
[2020-11-29] MEDS: POLYETHYLENE (MIRALAX) 17 GM PACK PO SCH ×3 (05:00→17:30)
[2020-11-29 05:46] LABS: Hematocrit (blood only) 28.9 % (42-52); Hemoglobin 9.6 g/dL (14.0-18.0); Mean Corpuscular Hemoglobin 30.3 pg (25-34); Mean Corpuscular Hgb Conc 33.2 g/dL (32-36); Mean Corpuscular Volume 91.2 fL (80-100); Mean Platelet Volume 9.2 fL (7.4-10.4); Platelet Count 190 K/uL (130-400); RDW Coefficient of Variation 12.9 % (11.5-14.5); RDW Standard Deviation 43.4 fL (36.4-46.3); Red Blood Count 3.17 M/uL (4.7-6.1); White Blood Count 7.94 K/uL (4.8-10.8)
[2020-11-29 06:29] LABS: BUN Creatinine Ratio 22.1 (10-20); Creatinine Clr Calc Pharmacy 86.4 ml/min; Est GFR (African American) 91.4 ml/min; Est GFR (Non-African American) 78.9 ml/min; Potassium 4.5 mmol/L (3.5-5.1)
[2020-11-29] MEDS: ESCITALOPRAM OXALATE 20 MG TAB PO SCH (07:19)
[2020-11-29] MEDS: ASPIRIN 81 MG ECTAB PO SCH (07:19)
[2020-11-29] MEDS: TAMSULOSIN HCL 0.4 MG CAP PO SCH (07:19)
[2020-11-29] MEDS: PANTOprazole 40 MG TAB PO SCH (07:20)
--- NOTE | 2020-11-29 13:11 | Orthopedic Progress Note ---
Date of Service November 29, 2020 Assessment & Plan (1) Lumbar stenosis with neurogenic claudication: Admission and Anticipated Discharge Date Admission Date: November 27, 2020 We will continue physical therapy monitor his TOM output anticipate possible discharge home tomorrow. Subjective Patient's back pain is controlled leg symptoms improved Physical Exam Physical Exam: On exam he has good strength testing is comfortable. Results & Data ([facility]) Vital Signs (Past 12 Hours) Vital Signs Temp Pulse Resp BP Pulse Ox 11/29/20 07:01 36.8 C 69 16 117/74 97
--- NOTE | 2020-11-29 15:38 | Hospitalist Progress Note ---
Date of Service November 29, 2020 Assessment & Plan (1) Status post lumbar surgery: Post op day#2 S/P T12-L2 decompression and fusion by Dr Ching Per ortho for pain control, wound care, anticoagulation and activities Continue incentive spirometry, PT/OT when appropriate Complains of more pain today-has been on pain medication Post op blood loss anemia EBL: 250ml Hgb 10.9 today (pre-op hgb 13.5) Asymptomatic. BP improved to 138/81 during time of evaluation , Globin remains stable at more than 9 (2) CAD (coronary artery disease): S/p BEN in 02/2020 Denies chest pain, shortness of breath Continue aspirin, atorvastatin Plavix on hold, will resume as per Dr. Ching (3) Hypertension: Continue amlodipine, irbesartan Plan to resume HCTZ tomorrow AM (4) Hyperlipidemia: Continue atorvastatin (5) Depression: (6) Anxiety: Continue Lexapro (7) GERD (gastroesophageal reflux disease): Continue PPI (8) BPH (benign prostatic hyperplasia): Continue finasteride, tamsulosin DVT Prophylaxis SCDs per ortho Disposition per primary service Follows with Dr. Barnes in [place] for routine care Medically stable Admission and Anticipated Discharge Date Admission Date: November 27, 2020 Subjective 11/29/2020 The patient was seen and examined in medical floor He has been complaining of more pain at the back today Denies any other significant symptoms Review of Systems Review of Systems: All systems reviewed and are unremarkable except as noted below Physical Exam Physical Exam: General: no distress, WDWN Head: normocephalic, atraumatic Eyes:conjunctiva non-injected, anicteric ENT: normal inspection external ears, nose, mucous membranes moist Neck: supple, trachea midline Lungs: clear, no respiratory distress, no wheezing/rhonchi/rales CV: RRR, no murmur, no pretibial edema Abd: normal BS, soft, non-tender Back: TOM drain in place with serosanguineous drainage Ext: no cyanosis, no calf tenderness, pedal pushes and pulls intact bilaterally, distal pulses intact, sensation to light touch intact Neuro: A&O x 3, no focal deficits noted, normal affect Skin: warm, dry Results & Data Results & Data ([facility]) Vital Signs (Past 12 Hours) Vital Signs Temp Pulse Resp BP Pulse Ox 11/29/20 15:33 36.8 C 70 17 115/72 98 11/29/20 07:01 36.8 C 69 16 117/74 97 Laboratory Results Short CBC 11/29/20 Range/Units 05:22 WBC 7.94 (4.8-10.8) K/uL Hgb 9.6 L (14.0-18.0) g/dL Hct 28.9 L (42-52) % Plt Count 190 (130-400) K/uL BMP 11/29/20 05:22 Sodium 139 Potassium 4.5 Chloride 105 Carbon Dioxide 32 BUN 22 H Creatinine 0.98 Glucose 109 H Calcium 8.0 L Medications Administered Current Inpatient Medications Acetaminophen (Acetaminophen 500 Mg Tab) 1,000 mg PO Q8H PRN PRN Reason: MILD Pain Scale 1,2,3 & Pre PT Stop: 12/27/20 17:54 Al Hydrox/Mg Hydrox/Simethicone (Aluminum/Magnesium Susp 30 Ml Udc) 30 ml PO Q6H PRN PRN Reason: Dyspepsia Stop: 12/27/20 17:54 Last Admin: 11/29/20 12:14 Dose: 30 ml Documented by: Amlodipine Besylate (Amlodipine Besylate 5 Mg Tab) 10 mg PO [facility] Stop: 12/27/20 20:59 Last Admin: 11/28/20 21:11 Dose: 10 mg Documented by: Aspirin (Aspirin 81 Mg Ectab) 81 mg PO [facility] Stop: 12/28/20 08:59 Last Admin: 11/29/20 07:19 Dose: 81 mg Documented by: Atorvastatin Calcium (Atorvastatin 40 Mg Tab) 80 mg PO [facility] Stop: 12/27/20 20:59 Last Admin: 11/28/20 21:10 Dose: 80 mg Documented by: Bisacodyl (Bisacodyl 10 Mg Supp) 10 mg TN DAILY PRN PRN Reason: Constipation Stop: 12/29/20 15:57 Diphenhydramine HCl (Diphenhydramine Capsule 25 Mg Cap) 25 mg PO Q6H PRN PRN Reason: Allergic Rhinitis/Insomnia Stop: 12/27/20 17:54 Escitalopram Oxalate (Escitalopram Oxalate 20 Mg Tab) 20 mg PO [facility] Stop: 12/28/20 08:59 Last Admin: 11/29/20 07:19 Dose: 20 mg Documented by: Famotidine (Famotidine 20 Mg Tab) 20 mg PO Q12H PRN PRN Reason: Dyspepsia Stop: 12/27/20 17:54 Finasteride (Finasteride 5 Mg Tab) 5 mg PO HS [facility] Stop: 12/27/20 20:59 Last Admin: 11/28/20 21:10 Dose: 5 mg Documented by: Hydromorphone HCl (Hydromorphone Inj 0.5 Mg/0.5 Ml Syr) 0.5 mg IV Q3H PRN PRN Reason: MOD pain (scale 4-6) & Pre PT Stop: 12/11/20 17:54 Hydromorphone HCl (Hydromorphone Inj 1 Mg/Ml Syringe) 1 mg IV Q3H PRN PRN Reason: severe pain (scale 7-10) Stop: 12/11/20 17:54 Hydroxyzine HCl (Hydroxyzine Hcl 25 Mg Tab) 25 mg PO Q8H PRN PRN Reason: Anxiety Stop: 12/27/20 17:54 Promethazine HCl 12.5 mg/ (Sodium Chloride) 50.5 mls @ 202 mls/hr IV Q6H PRN PRN Reason: Nausea &/or Vomiting Stop: 12/27/20 17:54 Lorazepam (Ativan) 0.5 mg in 1 mls @ 1 mls/min IV Q8H PRN PRN Reason: Sedation/Anxiety Stop: 12/27/20 17:54 Influenza Virus Vaccine Quadrival (Do Not Administer Flu Vaccine) 1 ea N/A PRN PRN PRN Reason: Notification Stop: 12/27/20 17:54 Irbesartan (Irbesartan 150 Mg Tab) 150 mg PO [facility] Stop: 12/27/20 20:59 Last Admin: 11/28/20 21:10 Dose: 150 mg Documented by: Lorazepam (Lorazepam 0.5 Mg Tab) 0.5 mg PO Q8H PRN PRN Reason: sedation/anxiety Stop: 12/27/20 17:54 Magnesium Hydroxide (Magnesium Hydroxide Susp 30 Ml Udc) 30 ml PO Q24H PRN PRN Reason: Constipation Stop: 12/27/20 17:54 Metoclopramide HCl (Metoclopramide Hcl Inj 5 Mg/Ml 2 Ml Vial) 10 mg IV Q6H PRN PRN Reason: Nausea &/or Vomiting Stop: 12/27/20 17:54 Multivitamins/Minerals (Calcium 600mg + Vit D 400 Iu Tab) 1 tab PO HS [facility] Stop: 12/27/20 20:59 Last Admin: 11/28/20 21:10 Dose: 1 tab Documented by: Naloxone HCl (Naloxone Hcl 0.4 Mg/1 Ml Vial/Carp) 0.1 mg IV Q5M PRN PRN Reason: Oversedation/respiratory dep Stop: 12/27/20 17:54 Ondansetron HCl (Ondansetron Inj 2 Mg/Ml 2 Ml Vial) 4 mg IV Q6H PRN PRN Reason: Nausea &/or Vomiting Stop: 12/27/20 17:54 Ondansetron HCl (Ondansetron 4 Mg Od Tab) 4 mg PO Q6H PRN PRN Reason: Nausea Stop: 12/27/20 17:54 Oxycodone HCl (Oxycodone Hcl Ir 5 Mg Tab (Immediate Release)) 5 - 10 mg PO Q4H PRN PRN Reason: Pain & Pre PT Stop: 12/11/20 17:54 Last Admin: 11/29/20 08:59 Dose: 5 mg Documented by: Pantoprazole Sodium (Pantoprazole 40 Mg Tab) 40 mg PO QAM [facility] Stop: 12/28/20 08:59 Last Admin: 11/29/20 07:20 Dose: 40 mg Documented by: Pneumococcal Polyvalent Vaccine (Do Not Administer Pneumococcal Vaccine) 1 ea N/A PRN PRN PRN Reason: Notification Stop: 12/27/20 17:54 Polyethylene Glycol (Polyethylene (Miralax) 17 Gm Pack) 17 gm PO Q6 [facility] Stop: 12/28/20 05:59 Last Admin: 11/29/20 12:09 Dose: 17 gm Documented by: Senna/Docusate Sodium (Docusate Sodium/Senna 50/8.6mg Tab) 2 tab PO HS [facility] Stop: 12/27/20 20:59 Last Admin: 11/28/20 21:11 Dose: 2 tab Documented by: Sodium Biphosphate/Sodium Phosphate (Sod Phosphate/Sod Biphosphate Enema 132 Ml Btl) 132 ml TN ONE PRN PRN Reason: Constipation Stop: 12/27/20 17:54 Tamsulosin HCl (Tamsulosin Hcl 0.4 Mg Cap) 0.4 mg PO QAM [facility] Stop: 12/28/20 08:59 Last Admin: 11/29/20 07:19 Dose: 0.4 mg Documented by: Tramadol HCl (Tramadol Hcl 50 Mg Tablet) 50 - 100 mg PO Q4H PRN PRN Reason: Moderate-Severe pain & Pre PT Stop: 12/27/20 17:54 Last Admin: 11/29/20 12:19 Dose: 50 mg Documented by: Vitamin D (Cholecalciferol 1,000 Units 25 Mcg Tab) 1,000 units PO HS [facility] Stop: 12/27/20 20:59 Last Admin: 11/28/20 21:10 Dose: 1,000 units Documented by:
[2020-11-29] MEDS ORDERED: bisacodyL 10 MG SUPP PR PRN (15:58)
[2020-11-29] MEDS: ACETAMINOPHEN 500 MG TAB PO PRN (16:40)
[2020-11-29] MEDS: DOCUSATE SODIUM/SENNA 50/8.6MG TAB PO SCH (20:28)
[2020-11-29] MEDS: FINASTERIDE 5 MG TAB PO SCH (20:29)
[2020-11-29] MEDS: ATORVASTATIN 40 MG TAB PO SCH (20:29)
[2020-11-29] MEDS: amLODIPine BESYLATE 5 MG TAB PO SCH (20:29)
[2020-11-29] MEDS: IRBESARTAN 150 MG TAB PO SCH (20:29)
[2020-11-29] MEDS: CALCIUM 600MG + VIT D 400 IU TAB PO SCH (20:29)
[2020-11-29] MEDS: CHOLECALCIFEROL 1,000 UNITS 25 MCG TAB PO SCH (20:30)
[2020-11-30] MEDS: oxyCODONE HCL IR 5 MG TAB (IMMEDIATE RELEASE) PO PRN (05:43)
[2020-11-30 06:19] LABS: Hematocrit (blood only) 30.3 % (42-52); Hemoglobin 10.3 g/dL (14.0-18.0); Mean Corpuscular Hemoglobin 31.1 pg (25-34); Mean Corpuscular Volume 91.5 fL (80-100); Mean Platelet Volume 8.9 fL (7.4-10.4); Platelet Count 199 K/uL (130-400); RDW Coefficient of Variation 12.8 % (11.5-14.5); RDW Standard Deviation 43.3 fL (36.4-46.3); Red Blood Count 3.31 M/uL (4.7-6.1); White Blood Count 7.57 K/uL (4.8-10.8)
[2020-11-30 06:37] LABS: BUN Creatinine Ratio 20.8 (10-20); Calcium 8.2 mg/dl (8.5-10.1); Creatinine Clr Calc Pharmacy 99.6 ml/min; Est GFR (African American) 103.8 ml/min; Est GFR (Non-African American) 89.5 ml/min; Potassium 4.1 mmol/L (3.5-5.1)
[2020-11-30] MEDS: TAMSULOSIN HCL 0.4 MG CAP PO SCH (08:39)
[2020-11-30] MEDS: ESCITALOPRAM OXALATE 20 MG TAB PO SCH (08:39)
[2020-11-30] MEDS: ASPIRIN 81 MG ECTAB PO SCH (08:39)
[2020-11-30] MEDS: PANTOprazole 40 MG TAB PO SCH (08:39)
[2020-11-30] MEDS: ACETAMINOPHEN 500 MG TAB PO PRN (09:20)
--- NOTE | 2020-11-30 10:54 | Discharge Summary ---
Date of Service November 30, 2020 Admission HPI Per Admitting Provider This is a 70-year-old male well-known to me the presents with chronic persistent back pain. Failing since course of nonoperative care is here for surgical invention. Principal Diagnosis Lumbar spinal stenosis with neurogenic claudication Discharge Data Allergies Allergy/AdvReac Type Severity Reaction Status Date / Time Iodinated Contrast Media Allergy Intermediate HIVES Verified 11/27/20 11:08 Consultations 11/27/20 17:55 Consult Hospitalist Routine Procedures Performed Operation Date: 11/27/20 12:25 Actual Procedures p T12-L2 Decompression Fusion, Interbody Fusion L1-L2, Bone Morphogenetic Protein, Spinal Cord Monitoring - Romulo Ching DO s L2-L4 Hardware Removal - Romulo Ching DO Ordered Studies 11/27/20 12:25 FL lumbar spine 2-3V Routine Hospital Course (1) Lumbar stenosis with neurogenic claudication: Patient with lumbar decompression fusion tolerates well second orthopedic for possibly. Postop day 1 is up ambulating progressed to postop day or 2 on postop day 3 pain was well controlled TOM drain decreasing appropriately. Excellent strength testing. Subsequent discharge home. Discharge orders instructions from the chart for further review. Total Time Total Time Spent Total Time Spent (In Minutes): 20 minutes Discharge Plan Discharge Items Patient Disposition: Home - Self-Care Reason For Visit: Spinal Stenosis Lumbar Region with Neurogenic Discharge Diagnosis: Lumbar spinal stenosis with neurogenic claudication Activity: As commented below Non-emergency contact: Primary Care Provider Call non-emergency contact if: you have any medication questions Follow-up/Referrals: Hussein aBrnes [Primary Care Provider] - Diet: Regular Addtl Attending Provider Instructions: ACTIVITY RECOMMENDATIONS: SELF CARE INSTRUCTIONS AFTER THORACIC/LUMBAR FUSIONS 1. You may walk to your tolerance. It is good exercise for your legs and back. Expect some back and intermittent leg aches and pains. 2. You may perform "counter-top" level activities (make a sandwich, hattie with a project, etc.). 3. No bending or lifting of more than 10 pounds or back twisting of any nature (roll like a log when turning in bed). 4. You may ride in a car for 20-30 minutes at a time. No driving until after your first visit with your doctor. 5. Frequent changes of position and restricting sitting to 30 minutes at a time will help limit the amount of back spasms and stiffness you may experience. 6. You may discontinue the use of ambulatory aids (cane, crutches, etc.) once your strength and confidence allow. 7. You may manager of internal audit the shower and let water strike your incision when you arrive home at least once daily. Do not take a tub bath, sit in a hot tub or go into a swimming pool until after your first recheck in the office. SPECIAL CARE INSTRUCTIONS: VERY IMPORTANT TO READ AND REVIEW A. Your surgical incision has been closed with a cosmetic suture under the skin that will dissolve in about 6 weeks. In 14 days, you can use a pair of clean scissors and cut the suture that is left outside of the skin at the ends of your incision. 1. The small skin tapes can be removed 7 days after surgery if they have not fallen off by that point. 2. You may keep the wound open to air as much as possible to promote healing after post-op day number 5 unless told otherwise by your doctor. 3. If you think the wound looks like it is becoming infected (redness or worsening drainage) and/or you are experiencing fever, chill or worsening back pain and muscle spasms, contact the office so that we may evaluate you as soon as possible. B. Complications are uncommon, but please contact us if you have any signs or symptoms of: 1. wound infection (fever higher than 102.5 degrees F, redness, separation of wound, drainage, or increasing pain from the incision) 2. blood clots in legs (pain, swelling, redness and warmth in legs) 3. urinary tract infection (fever higher than 102.5 degrees F, burning upon urination or increased frequency of urination) 4. nerve problems (inability to walk on your toes or heels, numbness, loss of bowel or bladder control) 5. any other symptoms that concern you C. Please call the office at if you have any concerns or questions about your operation or recovery. D. No smoking! Smoking drastically decreases the chance of a solid fusion. E. Do not take any anti-inflammatory medications (Indocin, Advil, Motrin, Aspirin, Naprosyn, etc.) as these may inhibit the chance of a solid fusion. Tylenol is okay to take for pain. MANAGING PAIN AFTER SPINAL SURGERY 1. Narcotic medication is intended for short-term use and will be provided for surgical pain. Surgical pain usually lasts for a period of 4-6 weeks. Narcotic medication includes Percocet, Vicodin, Darvocet, Tylenol #3 or Lortab. 2. Longer-term pain is more appropriately treated with non-narcotic medication such as Tylenol ES. 3. Muscle spasm is not appropriately treated with narcotics. Muscle relaxers such as Soma, Flexeril or Skelaxin can be used along with Tylenol ES. 4. Remember that we all live with some "aches and pains". This is not unusual or uncommon after an injury or as we get older. a. Back pain is expected and may include muscle spasms for 4 to 6 weeks after surgery. The pain should gradually improve. If the pain worsens for no apparent reason, please contact the office. b. Intermittent leg pain may also be experienced and should not be concerned about unless it worsens for no apparent reason. If so, please contact the office. 5. We will provide appropriate medication within the normal guidelines of their prescribed use. We will also be very cautious and aware of potential abuse and extended duration of patients' medication needs. a. Pain medications are for your comfort and to assist with sleep and rest so that the tissue can heal. They are not provided in order to return to normal activity and should not be used through the day. To do so or worsening pain at night can result from ongoing tissue damage and development of tolerance to the prescribed medicine. 6. Please allow 2-3 days to process refills. Prescriptions will not be mailed but must be picked up at the office. FOLLOW UP VISIT: Keep your scheduled follow-up appointment. Any questions, please call the office at . Pending Studies at Discharge: No Stand-Alone Forms: My [facility] [employer], Smoking Cessation Medications and DC Order Prescriptions: New tramadol 50 mg tablet 50 mg PO Q6H PRN (Reason: pain, moderate) Qty: 30 RF: 0 oxycodone 5 mg tablet 5 mg PO Q6H PRN (Reason: pain, severe) Qty: 30 RF: 0 Continued atorvastatin [Lipitor] 80 mg Tablet 80 mg PO HS RF: 0 irbesartan-hydrochlorothiazide [Avalide] 150-12.5 mg Tablet 1 tab PO HS RF: 0 hydrocodone-acetaminophen 5-325 mg Tablet 1 - 2 tab PO Q6H PRN (Reason: Pain) RF: 0 clopidogrel [Plavix] 75 mg Tablet 75 mg PO QAM RF: 0 aspirin 81 mg Tablet,Delayed Release (Dr/Ec) 81 mg PO QAM RF: 0 calcium carbonate [Calcium 600] 600 mg calcium (1,500 mg) Tablet 600 mg PO HS RF: 0 potassium 99 mg Tablet 99 mg PO HS RF: 0 tamsulosin [Flomax] 0.4 mg Capsule 0.4 mg PO QAM RF: 0 amlodipine [Norvasc] 10 mg Tablet 10 mg PO HS RF: 0 pantoprazole [Protonix] 40 mg Tablet,Delayed Release (Dr/Ec) 40 mg PO QAM RF: 0 finasteride 5 mg Tablet 5 mg PO HS RF: 0 escitalopram oxalate [Lexapro] 20 mg Tablet 20 mg PO QAM RF: 0 cholecalciferol (vitamin D3) [Vitamin D3] 25 mcg (1,000 unit) Tablet 25 mcg PO HS RF: 0 Discharge Orders: Discharge Order (Routine); Ordered 11/30/20 Ordered By: Romulo Ching Admission Data Admit Date/Time: 11/27/20 16:18 Attending Provider: Romulo Ching Admit Provider: Romulo Ching Primary Care Provider: Hussein Barnes Other Providers: Monse Billings ; Carlitos Mcgee
== END 2020-11-30 14:03 | disposition home or self-care (01) | DRG 455 ==
LOC: ASU 10:44 → 3E 16:18